=== PATIENT | male | born 1940 | race Caucasian/White ===

== ENCOUNTER 2016-06-18 05:25 | Inpatient (IN) | payer MEDICARE, OTHER ==
[2016-06-17 15:55] LABS: HEMATOCRIT 31.3 % (40.0-51.0)
[2016-06-17 16:08] LABS: ALBUMIN 3.2 G/DL (3.5-5.0); ALKALINE PHOSPHATASE 90 U/L (45-117); DIRECT BILIRUBIN 0.4 MG/DL (0.0-0.4); INDIRECT BILIRUBIN(NOT ORDER) 1.2 MG/DL (0.1-0.9); SGPT(ALT) 20 U/L (5-65); TOTAL BILIRUBIN 1.6 MG/DL (0-1.2); TOTAL PROTEIN 7.5 G/DL (6.0-8.5)
[2016-06-17 16:09] LABS: SGOT(AST) 26 U/L (5-40)
[2016-06-17 17:09] LABS: BUN (BLOOD UREA NITROGEN) 14 MG/DL (6-23); CHLORIDE, SERUM 99 MMOL/L (96-112); CO2 (CARBON DIOXIDE) 32 MMOL/L (24-34); CREATININE 1.02 MG/DL (0.70-1.30); GFR AFRICAN AMERICAN 83 ML/MIN (>=60); GFR NON AFRICAN AMERICAN 72 ML/MIN (>=60); GLUCOSE, SERUM 93 MG/DL (60-99); SODIUM, SERUM 142 MMOL/L (135-148)
--- NOTE | ~2016-06-18 | CN ---
Consultation Report [facility] [address] [place]. [address] NAME: CINDY ABERNATHY : 42 STATUS : ADM IN [facility]#: [id number] AGE: 76 ADM/REG DATE : 06/18/16 MR#: [id number] REPORT SERV DATE: 07/05/16 DICTATED BY: MELLO SEAMAN JR. DATE: 07/05/16 REPORT STATUS : Draft TRANSCRIBED BY: MODL DATE: 07/05/16 CONSULT NOTE DATE OF CONSULTATION: 07/05/2016 SUPPLIER QUALITY ENGINEERING MANAGER: Mello Seaman M.D. CHIEF COMPLAINT: Scrotal mass. HISTORY OF PRESENT ILLNESS: Mr. Abernathy is a 76-year-old gentleman, who was admitted on 06/18/2016, with epistaxis. He has a history of HHT, with a long history of recurring episodes of epistaxis, and as well as GI bleeding. 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 I was consulted to evaluate this tender mass in the scrotum. The patient is somewhat nonverbal as he has a tracheostomy, but he is able to follow commands and answer yes and no questions. PAST MEDICAL HISTORY: Significant for atrial fibrillation, cor pulmonale, chronic hepatic failure, gastrointestinal arterial venous malformations, and hereditary hemorrhagic telangiectasias. SOCIAL HISTORY: He is and is retired from . ALLERGIES: PENICILLIN. HOME MEDICATIONS: Pantoprazole, bumetanide, Keppra, metoprolol, Xifaxan, Amicar, Sucralfate, vitamin D3, potassium, lactulose, and tamoxifen. REVIEW OF SYSTEMS: A 10-system review was performed via yes and no questions. Pertinent negatives include no nausea, no vomiting, no chest pain, no shortness of breath. He has no testicular pain or scrotal pain. PHYSICAL EXAMINATION: GENERAL: He is an ill-appearing gentleman, lying comfortably in bed without distress. HEENT: Normocephalic and atraumatic. NECK: Reveals a tracheostomy in place. CHEST: Clear to auscultation bilaterally. HEART: Regular rate and rhythm. ABDOMEN: Soft, nontender, nondistended without palpable hernias. GENITOURINARY: Reveals an uncircumcised phallus which has some penile and scrotal edema. Both testicles are palpable and mildly tender more so on the left than the right, but no extratesticular masses were noted. Both epididymis were noted to be normal. Consultation Report [place] [address] [place]. [address] NAME: CINDY ABERNATHY : 42 STATUS : ADM IN PAT#: [id number] AGE: 76 ADM/REG DATE : 06/18/16 MR#: [id number] REPORT SERV DATE: 07/05/16 DICTATED BY: MELLO SEAMAN JR. DATE: 07/05/16 REPORT STATUS : Draft TRANSCRIBED BY: NETTIE DATE: 07/05/16 LABORATORY DATA: Electrolytes are within normal limits. Sodium was a little bit high at 151, BUN 25, creatinine 0.78, white blood cell count 5.4, hemoglobin 7, hematocrit 23.7. ASSESSMENT: Normal testicles bilaterally with mild tenderness more so on the left than the right. Normal epididymis. I did not palpate any extratesticular masses. RECOMMENDATIONS: This could be an early stage epididymitis. I am not sure which mass was palpated by the nursing staff, however, I do not feel any extratesticular masses, I have recommended a scrotal ultrasound for better delineation of a possible epididymitis. I will follow up with the patient tomorrow after the ultrasound has been completed. RAZ/NETTIE Mello Seaman Jr., M.D. / [id number] CC: Matthew Adair M.D.
--- NOTE | ~2016-06-18 | CONSULT ---
Radiation Oncology Consult [place] [id number] [facility] [place]. [address] NAME: CINDY QUEVEDO : 42 STATUS : ADM IN PAT#: [id number] AGE: 76 ADM/REG DATE : 06/18/16 MR#: [id number] REPORT SERV DATE: 07/16/16 DICTATED BY: ARNIE TEAGUE DATE: 07/16/16 REPORT STATUS : Draft TRANSCRIBED BY: MODMin DATE: 07/16/16 RADIATION ONCOLOGY CONSULTATION CHIEF COMPLAINT: Laryngeal squamous cell carcinoma. HISTORY OF PRESENT ILLNESS: Mr. Quevedo is a 76-year-old gentleman with hereditary hemorrhagic telangiectasias and a complicated history of multiple AVMs and bleeding episodes that have contributed to his current hepatic encephalopathy. He was most recently admitted to the hospital with epistaxis, treated with nasal packing and then readmitted after beginning to bleed again. Tracheostomy was performed due to stenosis and biopsy of the larynx returned invasive squamous cell carcinoma. PET-CT completed 07/07/2016 showed a 3.2 x 3.1 x 3.1 cm mass involving the left larynx extending to the false vocal cord and into the infraglottic larynx with anterior extension into the superficial soft tissues along the tracheostomy tube with direct involvement of the thyroid cartilage with posterior extension along the anterior esophagus with a single site of metastatic disease measuring 2.5 x 2.8 x 4 cm in the left neck adjacent to the primary lesion. MRI of the face and neck completed 07/13/2016 showed the lesion to be T4 with the left neck mass involving the posterior aspect of the left sternocleidomastoid and involving the carotid. The patient has an NG tube placed currently, but is not receiving any feedings. He is unable to swallow food and there is some consideration for a PEG tube being placed. He is resting comfortably today, but continues to struggle with diarrhea and hepatic encephalopathy. He continues to receive lactulose and Xifaxan. PAST MEDICAL HISTORY: HHT; multiple bleeding episodes, treated previously by Dr. 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 MEDICATIONS: Medication list reviewed included in the patient's chart. ALLERGIES: PENICILLIN. 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 He has multiple family members here present as support. 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 Does not drink or use tobacco. FAMILY HISTORY: HHT. REVIEW OF SYSTEMS: Documented through chart and discussion with family. PHYSICAL EXAMINATION: GENERAL: The patient is awake, alert, oriented, in no acute distress. VITAL SIGNS: Afebrile. Vital signs stable. HEENT: Extraocular movements are intact. Sclerae anicteric. Oral cavity is benign without erythema. Tracheostomy in place. Left neck mass. Radiation Oncology Consult [address] [address] NAME: CINDY QUEVEDO : 42 STATUS : ADM IN [facility]#: [id number] AGE: 76 ADM/REG DATE : 06/18/16 MR#: [id number] REPORT SERV DATE: 07/16/16 DICTATED BY: ARNIE TEAGUE DATE: 07/16/16 REPORT STATUS : Draft TRANSCRIBED BY: NETTIE DATE: 07/16/16 LYMPHATICS: No supraclavicular or axillary lymphadenopathy palpated. LUNGS: Clear to auscultation bilaterally. Appropriate work of breathing. HEART: Regular rate. Normal sinus rhythm. No murmurs, rubs, or gallops. ABDOMEN: Soft, nontender, nondistended. No hepatosplenomegaly. No apparent hernias. Rectal tube remains in place. EXTREMITIES: No cyanosis, clubbing, or edema. SKIN: No rashes. No obvious jaundice. LABS AND OTHER DATA: Imaging and pathology as described above. ASSESSMENT/PLAN: A 76-year-old gentleman with hereditary hemorrhagic telangiectasias, hepatic encephalopathy, and a large unresectable laryngeal squamous cell carcinoma. Mr. Quevedo is unable to eat at this time due to his laryngeal mask mass. First priority is to gain access. Currently, he has an NG tube in place, but there are plans to consider PEG tube placement. This will be extremely difficult due to his comorbidities, specifically his hereditary hemorrhagic telangiectasias and multiple AVMs. If he is able to have the tube placed, he could be released to home with tube feedings. If this is successful, a short course of palliative radiation therapy may be reasonable to shrink the laryngeal mass. Radiation alone is not curative in this setting and the family understands this. Second radiation in the setting of hereditary hemorrhagic telangiectasias could possibly lead to mucosal instability and significant bleeding. Family expresses understanding of this as well. A palliative course of radiation therapy would consist of approximately 4500 cGy in 15 fractions delivered in a hypofractionated manner to limit the number of treatments and to maximize effectiveness. Radiation is unlikely to help with feeding in the short term as it will significantly irritate the proximal esophagus, larynx, and oropharynx during treatment and this irritation will likely last at least two weeks after completion of treatment. Therefore, I would hesitate to start radiation without some sort of tube feedings in place. I plan to follow the patient while in-house and we will await further recommendations once he has been evaluated surgically. JEEVAN/NETTIE Arnie Teague M.D. / [id number] CC: Drake Choi MD Benjamin R Nadeau, MD Peter Sabatini, MD
--- NOTE | ~2016-06-18 | CN ---
Consultation Report [place] [id number] [facility] [place]. [address] NAME: CINDY ABERNATHY : 42 STATUS : ADM IN [facility]#: [id number] AGE: 76 ADM/REG DATE : 06/18/16 MR#: [id number] REPORT SERV DATE: 06/18/16 DICTATED BY: KHARI MAHAN DATE: 06/18/16 REPORT STATUS : Draft TRANSCRIBED BY: MODL DATE: 06/18/16 CONSULTATION DATE OF CONSULTATION: 06/18/2016 REASON FOR CONSULTATION: Postop ventilator management. CHIEF COMPLAINT: Unable to obtain due to the patient's current medical status, family is at the bedside. HISTORY OF PRESENT ILLNESS: Mr. Abernathy is a 76-year-old gentleman with a past medical history of hereditary hemorrhagic telangiectasia, who currently follows with Dr. Adair. 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 Since it was difficult to conduct this in the clinic, the patient underwent surgery. Upon reviewing the operative record, it was noted that the patient had glottic and subglottic telangiectasias causing for his compromised airway, and the patient is currently intubated. Otherwise, family states that he has frequent nosebleeds, bleeding from his digits and so forth. PAST MEDICAL HISTORY: Hereditary hemorrhagic telangiectasia, atrial fibrillation, cor pulmonale, chronic hepatic failure with hepatic AVMs, and many gastrointestinal AVMs according to the son. HOME MEDICATIONS: Home medication list reviewed. ALLERGIES: PENICILLIN. FAMILY HISTORY: Other family members with HHT. SOCIAL HISTORY: The patient currently has his and son at the bedside. REVIEW OF SYSTEMS: Unable to obtain review of systems due to the patient's current medical status. PHYSICAL EXAMINATION: VITAL SIGNS: Afebrile, heart rate currently in the 40s, respiratory rate 10, oxygen saturation 100%, blood pressure currently around 100 systolic. GENERAL: The patient is sedated, he does move his extremities to painful stimuli. HEENT: The patient has many facial telangiectasias noted. PULMONARY: Lungs are clear to auscultation. CARDIAC: Bradycardia, no murmurs. ABDOMEN: Soft, nontender, nondistended. EXTREMITIES: No significant extremity edema. Consultation Report [facility] [address] [facility] [place]. [address] NAME: CINDY ABERNATHY : 42 STATUS : ADM IN PAT#: [id number] AGE: 76 ADM/REG DATE : 06/18/16 MR#: [id number] REPORT SERV DATE: 06/18/16 DICTATED BY: KHARI MAHAN DATE: 06/18/16 REPORT STATUS : Draft TRANSCRIBED BY: MODL DATE: 06/18/16 LABORATORY EXAMINATION: Hemoglobin 9.5. INR 1.3. Good kidney function. Elevated total bilirubinemia, mildly. Arterial blood gas shows an elevated pCO2 but otherwise adequate. ASSESSMENT AND PLAN: Mr. Abernathy is a 76-year-old male with a past medical history noted above, who presents postop to the intensive care unit on mechanical ventilation. The patient is to undergo tracheostomy. 1. Acute respiratory failure: This is actually for airway protection as the patient has subglottic and glottic stenoses for which patient may have worsening respiratory failure if they were not intubated. The patient is to undergo tracheostomy here in the next 24-[address] Adair is to call the [facility] in [place] for further directives from their perspective on further therapy of this telangiectasia syndrome on the glottic and subglottic areas. 2. Atrial fibrillation and bradycardia. As noted above in the physical exam, the patient is quite bradycardic. At this moment in time, the patient has been taken off all sedation. We are checking troponin, labs. However, even being off sedation here for last several hours, it seems that the patient has worsening bradycardia with some long pauses. For that reason. At this moment in time, we will go forward with a cardiology consultation, and we have already placed the patient on norepinephrine. 3. FEN: At this moment in time, we will hold off on any tube feeds as we do not have any OG tube or NG tube. According to the son, the patient has thousands of arteriovenous malformations and has had past gastrointestinal bleeds which can be quite significant. Discussing this with Dr. Adair, they may place a Dobbhoff tube in the OR at the time of surgery in a more controlled setting. Thank you very much for this consultation and allowing us to participate in your patient's care. Please call us with any further questions or concerns. HFQ/MODL Khari Mahan MD / [id number] CC: Drake Choi MD
--- NOTE | ~2016-06-18 | CN ---
Consultation Report [facility] [address] [place]. [address] NAME: CINDY QUEVEDO : 42 STATUS : ADM IN PAT#: [id number] AGE: 76 ADM/REG DATE : 06/18/16 MR#: [id number] REPORT SERV DATE: 06/24/16 DICTATED BY: REINALDO HENSON DATE: 06/24/16 REPORT STATUS : Draft TRANSCRIBED BY: MODL DATE: 06/24/16 CONSULT NOTE DATE OF CONSULTATION: 06/24/2016 REASON FOR CONSULT: Intermittent mental confusion, seizure disorder. HISTORY OF PRESENT ILLNESS: This patient is a 76-year-old male with the underlying condition of hereditary hemorrhagic telangiectasia along with recurrent episodes of epistaxis and GI bleed. This patient was apparently admitted in [facility] for his one of the recurrence of nasal bleed, which needed nasal packing and later he was discharged. He went to follow up with [facility] for removal of nasal packing and upon removal, this patient's bleeding resumed and eventually, this patient was needed to be taken in the operation theater for further intervention. He was noted to have a glottic and subglottic stenosis, which was likely secondary to telangiectasia and needed tracheostomy and presently, the patient is status post tracheostomy. He also noted to have some cardiological changes including atrial fibrillation and bradycardia with pulse rate in the range of 50-53 beats. The Neurology Service was being consulted as the patient noted to have these intermittent episodes of mental confusion along with difficulty in following verbal commands on a consistent basis. He also noted to have a history of seizure disorder, which was apparently diagnosed about a year ago when this patient likely had a hepatic encephalopathy due to his chronic hepatic failure. He did not have any overt seizure activity and has been on Keppra 1000 mg every 12 hours. In addition, he also noted to have hyper ammonia with the ammonia level in the range of 95. No history of any lateralized weakness. PAST MEDICAL HISTORY: 1. Hereditary hemorrhagic telangiectasia, recurrent nasal epistasis. 2. Atrial fibrillation. 3. Cor pulmonale. 4. Chronic hepatic failure. 5. AVM involving the gastrointestinal tract. FAMILY HISTORY: Not very contributory for seizure disorder. 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 Lives with his family. No history of any significant cigarette smoking, alcohol drinking, or any other illicit drug abuse. HOME MEDICATION: 1. Protonix 40 mg daily. 2. Keppra 500 mg twice daily. Consultation Report [address] [place]. [address] NAME: CINDY QUEVEDO : 42 STATUS : ADM IN PAT#: [id number] AGE: 76 ADM/REG DATE : 06/18/16 MR#: [id number] REPORT SERV DATE: 06/24/16 DICTATED BY: REINALDO HENSON DATE: 06/24/16 REPORT STATUS : Draft TRANSCRIBED BY: NETTIE DATE: 06/24/16 3. Metoprolol 12.5 mg every 8 hours. 4. Rifaximin 550 mg twice daily. 5. Lactulose 2 0 g/30 mL, takes every 8 hours. 6. Tamoxifen 20 mg daily. 7. Potassium chloride 20 mEq daily. ALLERGIES: PENICILLIN, BLOOD THINNER. REVIEW OF SYSTEMS: A 10-point review of systems was attempted, could not be well performed because of his inability to communicate due to his recent tracheostomy, although some of the information obtained through the help of nursing staff and his assessment. NEUROLOGY: Intermittent mental confusion, seizure. RESPIRATORY SYSTEM: Intermittent breathing difficulty. GASTROINTESTINAL SYSTEM: Heartburn. Rest of the review of systems could not be obtained and largely negative. PHYSICAL EXAMINATION: VITAL SIGNS: Temperature 98.7, blood pressure 114/50, pulse is 70 per minute, respiratory rate 9, and he was saturating 99%. GENERAL: Elderly male lying with mild discomfort in his bed. HEAD: Nontraumatic. NECK: Midline tracheostomy wound with tracheostomy in place. EYES: PERRL. CARDIOLOGY: S1, S2 audible. Regular rhythm. RESPIRATORY SYSTEM: Lungs are clear to auscultation. GI: Soft, nontender. Bowel sounds positive. NEURO: Mental status examination: The patient was awake and alert. Speech could not be assessed. Cranial nerve evaluation: Pupils round and reactive. Extraocular movements are intact. No apparent facial droop or facial sensory impairment. Tongue was in midline. Motor examination: Normal bulk, tone. Muscle strength: Moves both upper and lower extremities equally and intermittently, though specifically was not able to follow commands, hence individual muscle strength assessment could not be performed. Sensory examination: Grossly intact. Coordination and gait: Deferred. MUSCULOSKELETAL SYSTEM: Near symmetrical range of movement. EXTREMITIES: No distal clubbing or cyanosis. PSYCHIATRY: Mood and affect flat. LABORATORY DATA AND DIAGNOSTICS: Sodium 145, potassium 3.8, chloride 107, carbon dioxide 29, BUN 34, creatinine 0.98, glucose 126. Total protein 6.2, AST 13, ALT 13, alkaline phosphatase 73. WBC 6.9, hemoglobin 8.2, hematocrit 25.1, platelets 154. INR 1.3. Noncontrast CT scan of the head revealed no acute intracranial abnormalities. IMPRESSION: This is a 76-year-old male with the underlying condition of: 1. Transient encephalopathy - multifactorial, metabolic, toxic, hepatic etiologies Consultation Report [place] [address] [place]. [address] NAME: CINDY QUEVEDO : 42 STATUS : ADM IN [facility]#: [id number] AGE: 76 ADM/REG DATE : 06/18/16 MR#: [id number] REPORT SERV DATE: 06/24/16 DICTATED BY: REINALDO HENSON DATE: 06/24/16 REPORT STATUS : Draft TRANSCRIBED BY: NETTIE DATE: 06/24/16 predominant. 2. Seizure disorder. 3. Recurrent episodes of epistaxis. 4. Status post tracheostomy. 5. Atrial fibrillation. 6. Bradycardia - presently improved. 7. Hereditary hemorrhagic telangiectasia. PLAN: 1. Noncontrast CT scan of the head reviewed. No acute intracranial abnormalities. 2. We will consider obtaining EEG if his cognitive mental status does not show any definite improvement. 3. Continue Keppra 500 mg twice daily. 4. Hyper ammonia, on lactulose 30 mL every 12 hours. We will recheck serum ammonia level. 5. Atrial fibrillation. Cardiology team on board to manage. 6. Seizure precautions, safety precautions, fall precautions. I appreciate Dr. Selam Trinidad for her valuable input and allowing me to participate in the management of this patient's care. FLOYD/NETTIE Reinaldo Henson MD / [id number] CC: Drake Choi MD
--- NOTE | ~2016-06-18 | OP ---
[facility] [place] [address] [place]. [address] NAME: CINDY QUEVEDO : 42 STATUS : REG [facility] PAT#: [id number] AGE: 76 ADM/REG DATE : 06/18/16 MR#: [id number] REPORT SERV DATE: 06/18/16 DICTATED BY: LINCOLN JAIMES DATE: 06/18/16 REPORT STATUS : Draft TRANSCRIBED BY: MODL DATE: 06/18/16 DATE OF PROCEDURE: 06/18/2016 PREOPERATIVE DIAGNOSES: 1. Hereditary hemorrhagic telangiectasia. 2. Epistaxis. POSTOPERATIVE DIAGNOSES: 1. Hereditary hemorrhagic telangiectasia. 2. Epistaxis. 3. Glottic and subglottic stenosis, secondary to telangiectasia. PROCEDURE: 1. Endoscopic control of epistaxis. 2. Microdirect laryngoscopy. 3. Rigid bronchoscopy. SURGEON: Lincoln Jaimes M.D. ANESTHESIA: General. COMPLICATIONS: None. COUNTS: All counts correct following the procedure. ESTIMATED BLOOD LOSS: 30 mL PREOPERATIVE INFORMED CONSENT: We discussed risks and benefits of surgery including, but not limited to bleeding infection, possible septal perforation, possible persistent epistaxis requiring repeat cauterization and consent is on the chart. PROCEDURE IN DETAIL: The patient was brought to the operating suite and placed on the operating table in the supine position. General endotracheal anesthesia was difficult and required intubated with a 6-1/2 tube, due to obstruction of the glottic and subglottic level. Once intubated, the patient's head and neck was cleaned, prepped, and draped in sterile fashion. The packing was removed from the right naris of the nose, it was then packed with pledgets soaked with 1:1000 adrenaline and then using a 0-degree endoscope, the packing was removed and the multiple telangiectasias along the septum as well as the inferior turbinate which were cauterized judiciously until bleeding was controlled. Due to the findings at intubation, Microdirect laryngoscopy and rigid bronchoscopy deemed to be necessary to be performed. Bite guard was placed on the upper teeth and a Dedo laryngoscope was carefully inserted on the oral cavity and used to inspect the oral cavity and oropharynx which was noted to be [facility] [place] [id number] [facility]. [address] NAME: CINDY QUEVEDO : 42 STATUS : REG [facility] PAT#: [id number] AGE: 76 ADM/REG DATE : 06/18/16 MR#: [id number] REPORT SERV DATE: 06/18/16 DICTATED BY: LINCOLN JAIMES DATE: 06/18/16 REPORT STATUS : Draft TRANSCRIBED BY: NETTIE DATE: 06/18/16 clear. The supraglottic larynx was then entered, the scope was then advanced at the level of the vocal cord. There was noted to be a thickening and telangiectatic changes to the left vocal cord. The patient was then suspended using the suspension apparatus and then a 0- degree Yan brenden was placed through the laryngoscope which was used inspect the vocal cords. The telangiectasia extended into the subglottic trachea causing significant stenosis approximately 1 to 2 cm below the vocal cords. The scope was then advanced after deflating the cuff on the endotracheal tube down to the both main stem bronchi. There was no further telangiectasias along the trachea or the main stem bronchi of the cuff. The scope was then removed. The cuff was reinflated and due to the extent the stenosis, the patient was left intubated and taken to recovery room in stable condition. WALLY/NETTIE Lincoln Jaimes M.D. / [id number] CC: Drake Choi MD
--- NOTE | ~2016-06-18 | CN ---
Consultation Report [facility] [address] [place]. [address] NAME: CINDY QUEVEDO : 42 STATUS : ADM IN [facility]#: [id number] AGE: 76 ADM/REG DATE : 06/18/16 MR#: [id number] REPORT SERV DATE: 07/17/16 DICTATED BY: CRISPIN TEMPLE III DATE: 07/17/16 REPORT STATUS : Draft TRANSCRIBED BY: MODL DATE: 07/17/16 CONSULTATION DATE OF CONSULTATION: 07/17/2016 REASON FOR CONSULT: 1. Evaluation for gastrostomy tube placement. 2. Recommendation regarding surgical management. HISTORY OF PRESENT ILLNESS: We have been asked to see this 76-year-old male in the Intermediate Care Unit today for the above reasons. The patient was admitted on 06/18/2016. 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 This is unresectable. The patient is felt not to be a candidate for chemotherapy or radiation therapy. The patient has involvement of the esophagus with upper esophageal obstruction secondary to his malignancy and is not able to eat. He is currently dependent on Dobbhoff feeding tube which is becoming progressively uncomfortable to him and difficult to manage. The patient was felt not to be a candidate for endoscopy for PEG tube placement because of the obstruction of his proximal esophagus. The patient and his have requested open gastrostomy tube placement for enteral nutrition. Consideration for hospice has been recommended by his caring physicians but this has been declined by the patient and his family. They wished to have a way for enteral nutrition to be able to go home. PAST MEDICAL HISTORY: 1. History of stage IV laryngeal cancer as above. This has been associated with esophageal obstruction per ENT evaluation. 2. 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 3. 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 4. Cirrhosis. 5. History of hepatic encephalopathy in the past. 6. Seizure disorder. 7. Atrial fibrillation. 8. Obstructive sleep apnea. 9. Hypertension. 10.Cor pulmonale. PAST SURGICAL HISTORY: Includes tracheostomy. SOCIAL HISTORY: No history of tobacco or alcohol use. ALLERGIES: PENICILLIN AND "BLOOD THINNERS." Consultation Report [facility] [address] [place]. [address] NAME: CINDY QUEVEDO : 42 STATUS : ADM IN PAT#: [id number] AGE: 76 ADM/REG DATE : 06/18/16 MR#: [id number] REPORT SERV DATE: 07/17/16 DICTATED BY: CRISPIN TEMPLE III DATE: 07/17/16 REPORT STATUS : Draft TRANSCRIBED BY: MODMin DATE: 07/17/16 MEDICATIONS: Amicar, Bumex, vitamin D, Pepcid, lactulose, Keppra, Levaquin nasal spray, Xifaxan, Florastor, Carafate. PHYSICAL EXAMINATION: GENERAL: Chronically ill appearing male, who is alert and able to communicate by nodding his head. He has a tracheostomy tube in place. He has excoriation of the skin around his nose where his Dobbhoff feeding tube is in place. LUNGS: Clear. ABDOMEN: Soft and nontender. EXTREMITIES: Unremarkable. LABORATORY: The patient has had no recent laboratory studies. ASSESSMENT: 1. 76-year-old male with previously documented stage IV laryngeal cancer, with proximal esophageal obstruction, need for gastrostomy tube placement for enteral nutrition. 2. History of Ytpga-Lammu-Ssiux syndrome with recurrent episodes of GI bleeding. 3. Hypertension. 4. Obstructive sleep apnea. 5. Seizure disorder. 6. Atrial fibrillation. 7. Cor pulmonale. 8. History of cirrhosis and hepatic failure in the past. PLAN: I had a long discussion with the patient and his . I have explained that this is a major operation with high risk for morbidity and mortality in this setting, particularly with cirrhosis and probable portal hypertension. I have explained the long-term complications and problems associated with the G-tube including leakage around the tube, dislodgement of the tube, occlusion of the tube, and other mechanical problems. The procedure itself, the risks, benefits, alternatives, including not limited to the risk for bleeding, infection, enterotomy, injury to abdominal structure, postop small bowel obstruction, ileus, incisional hernia, dehiscence, leakage around the tube resulting in peritonitis, sepsis, and , prolonged ventilator dependency, precipitation of GI bleeding and unforeseen complications including deep venous thrombosis, pulmonary embolus, myocardial infarction, stroke, pneumonia, and , have been fully and completely explained to the patient and his . Their questions have been answered. They clearly and fully understand the risks and agreed to the surgery as planned. RHCarolann/NETTIE Crispin Temple III, M.D. Consultation Report [address] [place]. [address] NAME: CINDY QUEVEDO : 42 STATUS : ADM IN PAT#: [id number] AGE: 76 ADM/REG DATE : 06/18/16 MR#: [id number] REPORT SERV DATE: 07/17/16 DICTATED BY: CRISPIN TEMPLE III DATE: 07/17/16 REPORT STATUS : Draft TRANSCRIBED BY: NETTIE DATE: 07/17/16 / [id number] CC: Darke Choi MD
--- NOTE | ~2016-06-18 | CN ---
Consultation Report [facility] [address] [place]. [address] NAME: CINDY QUEVEDO : 42 STATUS : ADM IN PAT#: [id number] AGE: 76 ADM/REG DATE : 06/18/16 MR#: [id number] REPORT SERV DATE: 07/16/16 DICTATED BY: GERMAN NAVARRO DATE: 07/15/16 REPORT STATUS : Draft TRANSCRIBED BY: MODL DATE: 07/15/16 HEMATOLOGY ONCOLOGY INITIAL CONSULTATION REPORT DATE OF CONSULTATION: CONSULTING PHYSICIAN: Dr. Nieto of the ENT service consult regarding stage IV laryngeal cancer. CHIEF COMPLAINT: Laryngeal cancer. HISTORY OF PRESENT ILLNESS: The patient is a 76-year-old, white gentleman with history of hereditary hemorrhagic telangiectasias, cirrhosis complicated by hepatic encephalopathy, cor pulmonale, and atrial fibrillation who was admitted to the hospital for epistaxis. He was recently admitted to [facility] for recurrent epistaxis. He received nasal packing and was later discharged. He was seen in [facility] who removed the packing, but the patient again developed bleeding. He was admitted and taken to Surgery for further intervention. During this time, he was noted to have glottic and subglottic stenosis. This was felt secondary to telangiectasias. He had a tracheostomy performed. Later, he had a biopsy of the larynx, identifying invasive squamous cell carcinoma moderately to poorly differentiated in both the larynx and subglottic mass. He was thought to be T4N0 and potentially a surgical candidate. A PET scan was performed on 07/07/2016 showing a laryngeal carcinoma involving the left true and false vocal cord extending into the infraglottic larynx measuring 3.2 x 3.1 x 3.1 cm with an SUV max of 11.5. There is posterior extension across the midline to involve the right vocal cord and infraglottic larynx. There is anterior extension along the tracheostomy tube. The mass causes severe narrowing of the larynx and comes into contact with the esophagus which is demonstrated by the NG tube. The mass appears to involve the thyroid cartilage. The patient also has a 2.5 x 2.8 x 4 cm lymph node mass in the left neck adjacent to the lesion extending into the supraclavicular region with a maximum SUV value of 16.2. Finally, there was an 8 mm nodule in the right middle lobe adjacent to the major minor fissures but does not have significant uptake with an SUV of 1.8. An MRI of the orbit, face, and neck was then performed on 07/13/2016 showing a 4.1 x 4.3 x 4.1 cm laryngeal mass as well as irregular enhancing left neck mass with component of invasion into the posterior margin of the left sternocleidomastoid muscle. Likely was initially paulino but it appears to infiltrate and no longer has paulino contour. The left internal jugular vein is obscured in this region. As the patient has stage IVB disease and is unresectable, medical oncology is consulted for possible chemotherapy options. The patient is unable to give much history. He nodded to a few questions, but then asked for me to talk to his about all of my questions. In talking with his , the patient has had intermittent hoarseness for three years. He has seen ENT in the interim, but no obvious cause has been identified. He then developed persistent hoarseness since 04/2016. He developed stridor and respiratory issues after his discharge from [facility]. He has also been experiencing dysphagia getting choked on food and pills for the past several months. Consultation Report [place] [id number] [facility] [place]. [address] NAME: CINDY QUEVEDO : 42 STATUS : ADM IN [facility]#: [id number] AGE: 76 ADM/REG DATE : 06/18/16 MR#: [id number] REPORT SERV DATE: 07/16/16 DICTATED BY: GERMAN NAVARRO DATE: 07/15/16 REPORT STATUS : Draft TRANSCRIBED BY: NETTIE DATE: 07/15/16 Currently, the patient did report mild tenderness in the left neck at around the tracheostomy. He has had blood in his sputum production coming from his tracheostomy. The patient and family have not noticed any other bleeding at this time. He has had intermittent confusion during this hospitalization with elevation in his ammonia level related to hepatic encephalopathy. He has not required a rectal tube for over a week for diarrhea. He is still requiring lactulose and Xifaxan regularly. He did experience shortness of breath this morning related to obstruction of his tracheostomy. However, after tracheostomy care, his breathing is much improved. The patient is unable to give any other history and his denies any other issues while I talked to her on the phone. PAST MEDICAL HISTORY: 1. 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 Bernal at [facility]. 2. Multiple GI bleeds related to AV malformations. 3. Cirrhosis and chronic hepatic failure. 4. Hepatic encephalopathy. 5. Cor pulmonale. 6. Atrial fibrillation. 7. Seizure disorder. 8. Obstructive sleep apnea. 9. Hypertension. 10.Laryngeal cancer. MEDICATIONS: Reviewed from [facility]. ALLERGIES: PENICILLIN. 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 No tobacco alcohol or illicit drug use. FAMILY HISTORY: Family history of HHT. REVIEW OF SYSTEMS: Unable to obtain due to limited history by the patient and his . PHYSICAL EXAMINATION: VITAL SIGNS: Temperature 97.7, pulse 80, blood pressure 120/59, pulse ox 95% on nasal cannula. GENERAL: Elderly ill-appearing white gentleman in no acute distress. HEENT: Pupils equal, round, and reactive to light. Extraocular movements are intact. Conjunctivae and lids normal. Sclerae anicteric. Dry mucous membranes. No mucosal irritation on the tongue and posterior pharynx which was not well visualized as the patient was getting tracheostomy care. Neck tracheostomy in place with tenderness in the surrounding area without erythema or purulence. Also, has tenderness in the left neck but difficult to palpate due to pain and stress for his tracheostomy. Consultation Report [address] [place]. [address] NAME: CINDY QUEVEDO : 42 STATUS : ADM IN [facility]#: [id number] AGE: 76 ADM/REG DATE : 06/18/16 MR#: [id number] REPORT SERV DATE: 07/16/16 DICTATED BY: GERMAN NAVARRO DATE: 07/15/16 REPORT STATUS : Draft TRANSCRIBED BY: MODL DATE: 07/15/16 LUNGS: Normal respiratory effort. Clear to auscultation bilaterally anteriorly with occasional rhonchi. No wheezes or crackles appreciated. CARDIOVASCULAR: Irregularly irregular without RVR without murmurs, rubs or gallops. ABDOMEN: Soft, nontender, nondistended. Positive bowel sounds. Rectal tube in place with brown stool noted. EXTREMITIES: No clubbing or cyanosis. One to 2+ pitting edema, bilateral lower extremities up to the lower abdomen. SKIN: Warm, dry, intact. Scabbed lesion on the right face with bandage affixed to the scab and unable to be visualized without tearing the skin. Multiple raised telangiectasias on the skin. NEUROLOGIC: No focal deficits. PSYCHIATRIC: Awake, alert, and oriented but question is full insight as did disagree with his on some answers. LABS: BUN of 15, creatinine 0.8, total bilirubin of 1.9, albumin of 2.3, last CBC from 07/09/2016 with a white blood cell count 5400, hemoglobin 8.9 g/dL, hematocrit 28.6% platelets 117,000. Last ammonia 59 on 07/09/2016 with a peak of 115 on 07/01/2016. ASSESSMENT AND PLAN: The patient is a 76-year-old, white gentleman with hereditary hemorrhagic telangiectasia, cirrhosis complicated by hepatic encephalopathy, cor pulmonale, admitted for bleeding but then found to have glottic stenosis. Biopsy showed moderate-to- poorly differentiated squamous cell carcinoma prompting consultation. 1. Laryngeal carcinoma: I have reviewed the patient's records including notes, imaging reports, pathology reports, and labs. I personally viewed his PET and MRI images which show T4 laryngeal tumor with thyroid cartilage invasion and N3 paulino disease measuring greater than 7 cm. Surgery has already been ruled out based on vessel encasement and overall extent of disease. Based on his performance status, I cannot give induction chemotherapy. I do not even believe he can tolerate weekly chemotherapy to be given with concurrent radiation. I will talk with Radiation Oncology, but I feel the only option may be palliative radiation and hospice. The patient has seen Dr. Bernal at [facility]. I will contact Dr. Bernal to discuss the case and his opinion since I feel there are little options for treatment at this time. I will come back after talking with Radiation Oncology and Dr. Bernal to finalize any potential options. 2. Cirrhosis and hepatic encephalopathy: His ammonia has remained elevated, despite repeated treatment with lactulose and Xifaxan. He currently has a rectal tube which he has had for many days for diarrhea related to these medications. Continue current therapy. 3. Hereditary hemorrhagic telangiectasia: He is currently on Amicar and has only mild bleeding related to his tracheostomy and need for suctioning. Continue current treatment with Amicar at this time. I appreciate the consult and allowing me to take part in the patient's care. Consultation Report [facility] [address] [place]. [address] NAME: CINDY QUEVEDO : 42 STATUS : ADM IN PAT#: [id number] AGE: 76 ADM/REG DATE : 06/18/16 MR#: [id number] REPORT SERV DATE: 07/16/16 DICTATED BY: GERMAN NAVARRO DATE: 07/15/16 REPORT STATUS : Draft TRANSCRIBED BY: NETTIE DATE: 07/15/16 NORMA/NETTIE German Navarro MD / [id number] CC: Drake Choi MD
--- NOTE | ~2016-06-18 | HP ---
History And Physical [place] [id number] [place]. [address] NAME: CINDY ABERNATHY : 42 STATUS : REG [facility]#: [id number] AGE: 76 ADM/REG DATE : 06/18/16 MR#: [id number] REPORT SERV DATE: 06/18/16 DICTATED BY: LINCOLN ADAIR DATE: 06/18/16 REPORT STATUS : Draft TRANSCRIBED BY: MODL DATE: 06/18/16 DATE OF ADMISSION: 06/18/2016 CHIEF COMPLAINT: Epistaxis. HISTORY OF PRESENT ILLNESS: Mr. Abernathy is a 76-year-old gentleman with a history of HHT with long history of recurring episodes of epistaxis as well as GI bleed in the past. He was recently admitted to [facility] due to significant right-sided nosebleed requiring nasal packing for control. He was discharged from the hospital on Tuesday and then seen in my office yesterday for packing removal. After removing the packing in the office, the bleeding resumed and his nose had to be repacked to control epistaxis and he is here today to be taken to the operating room for control of his epistaxis. He had been having some increasing issues with shortness of breath and flexible exam in office showed some blood in the supraglottic larynx, but difficult to visualize due to this blood clots within of the larynx. The vocal cords appeared to be mobile. PAST MEDICAL HISTORY: Significant for atrial fibrillation, cor pulmonale, chronic hepatic failure, gastrointestinal arteriovenous vascular malformation, hereditary hemorrhagic telangiectasia. 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 MEDICATIONS: Pantoprazole, bumetanide, levetiracetam, metoprolol, Xifaxan, Amicar, Sucralfate, vitamin D3, potassium, lactulose, Tamoxifen. PHYSICAL EXAMINATION: GENERAL: The patient is an ill appearing gentleman with multiple telangiectasias involving his face and nose. He has a nasal pack in the right nares. Oral cavity and oropharynx shows multiple telangiectasias of the soft and hard palate. NECK: Supple. No palpable adenopathy or masses. LUNGS: He has a somewhat raspy noisy breathing, but no talib stridor and no retractions. CHEST: Again shows noisy upper airway, but otherwise his chest is clear to auscultation bilaterally. HEART: Regular in rate. ABDOMEN: Benign. EXTREMITIES: No clubbing, cyanosis or edema. IMPRESSION: Hereditary hemorrhagic telangiectasia with associated bright uncontrolled epistaxis. PLAN: The patient will be taken to the operating for endoscopic control of the epistaxis. History And Physical [address] [address] NAME: CINDY ABERNATHY : 42 STATUS : REG [facility] PAT#: [id number] AGE: 76 ADM/REG DATE : 06/18/16 MR#: [id number] REPORT SERV DATE: 06/18/16 DICTATED BY: LINCOLN ADAIR DATE: 06/18/16 REPORT STATUS : Draft TRANSCRIBED BY: NETTIE DATE: 06/18/16 WALLY/NETTIE Lincoln Adair M.D. / [id number]
--- NOTE | ~2016-06-18 | OP ---
Record Of Operation [facility] [address] [place]. [address] NAME: CINDY QUEVEDO : 42 STATUS : DIS IN PAT#: [id number] AGE: 76 ADM/REG DATE : 06/18/16 MR#: [id number] REPORT SERV DATE: 10/06/16 DICTATED BY: LINCOLN JAIMES DATE: 10/06/16 REPORT STATUS : Draft TRANSCRIBED BY: MODL DATE: 10/06/16 DATE OF PROCEDURE: 07/05/2016 PREOPERATIVE DIAGNOSES: 1. Hereditary hemorrhagic telangiectasia. 2. Laryngeal and subglottic mass. POSTOPERATIVE DIAGNOSES: 1. Hereditary hemorrhagic telangiectasia. 2. Squamous cell carcinoma of the larynx. PROCEDURES: 1. Microdirect laryngoscopy with CO2 laser and biopsy. 2. Rigid bronchoscopy. 3. Endoscopic control of epistaxis. SURGEON: Lincoln Jaimes M.D. ANESTHESIA: General. COMPLICATIONS: None. COUNTS: All counts correct following the procedure. ESTIMATED BLOOD LOSS: Minimal. PREOPERATIVE INFORMED CONSENT: We discussed the risks and benefits of surgery including, but not limited to bleeding, infection, possible loss of airway, possible airway fire, and , and consent is on the chart. PROCEDURE IN DETAIL: The patient was brought to the operating suite and placed on the operating table in supine position. General endotracheal anesthesia was initiated through previously existing endotracheal tube. Starting in the nose, the nose was decongested using 1:1000 topical Adrenalin. The nasal septum was injected with 1% lidocaine with 1:100,000 epinephrine. Following this, using a 0-degree endoscope, the nasal septum was cauterized and multiple telangiectasias along the septum and inferior and middle turbinates judiciously. Attention was taken to the oral cavity. A bite guard was placed on the upper teeth and a Dedo laryngoscope was used to inspect the oral cavity and oropharynx. There is no evidence of any mucosal lesions. The hypopharynx was clear of any mucosal lesions. The supraglottic larynx was inspected and there was noted to be an exophytic mass or lesion involving the left vocal fold extending into the subglottis that is obstructing his glottic airway as well as extending to the anterior commissure. Using a 0-degree Yan brenden, this was placed through the laryngoscope used to inspect the subglottic trachea. The lesion extended to approximately 1 cm below the vocal cords. The remainder of the trachea and both main stem bronchi were noted to be clear of Record Of Operation [address] [place] [facility] [address] NAME: CINDY QUEVEDO : 42 STATUS : DIS IN PAT#: [id number] AGE: 76 ADM/REG DATE : 06/18/16 MR#: [id number] REPORT SERV DATE: 10/06/16 DICTATED BY: LINCOLN JAIMES DATE: 10/06/16 REPORT STATUS : Draft TRANSCRIBED BY: MODL DATE: 10/06/16 disease. Multiple biopsies were taken of the left vocal fold and some were sent for frozen section. Frozen section came back consistent with squamous cell carcinoma. Bleeding was controlled using topical Adrenalin as well as CO2 laser to debulk the lesion. The Dedo laryngoscope was then removed and the patient was awakened from anesthesia and taken to the recovery room in stable condition. WALLY/NETTIE Lincoln Jaimes M.D. / [id number] CC: Drake Choi MD
--- NOTE | ~2016-06-18 | OP ---
Record Of Operation [facility] [address] [place]. 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 PROCEDURE: Gastrostomy tube placement. SURGEON: Dr. Crispin Temple. ANESTHESIA: General with intubation. COMPLICATIONS: None. ESTIMATED BLOOD LOSS: Less than 5 mL. SPECIMENS: None. DRAINS: Tarzan in subcutaneous tissue. LAP AND SPONGE COUNT: Correct x3. BRIEF HISTORY: This 76-year-old male has a history of stage IV laryngeal cancer with esophageal obstruction. It was felt that placement of a gastrostomy tube is indicated to allow for chronic enteral nutrition. This procedure, the risks, benefits, and alternatives, including not limited to the risk for bleeding, infection, pain, swelling, enterotomy, injury to abdominal structure, postop small bowel obstruction, ileus, seroma formation, hematoma formation, leakage around the gastrostomy tube, migration or occlusion of the tube requiring revision, malfunction of the tube, abdominal wall cellulitis and leakage around the tube and unforeseen complications including deep venous thrombosis, pulmonary embolus, myocardial infarction, stroke, pneumonia, and , were explained to the patient and his family at length prior to surgery. Their questions were answered. They understood the risks and agreed to the surgery as planned. DESCRIPTION OF PROCEDURE: After being properly identified and after discussing the risks of surgery with the patient and his family again in the preoperative area, he was taken to the operating room and placed in a supine position on the operating room table. General anesthesia was administered. He was intubated without difficulty. The abdomen was prepped and draped sterilely in the usual fashion. After an appropriate "time-out" per JCAHO standards, a small vertical midline incision was made midway between the umbilicus and the xiphoid process. The incision was continued through the subcutaneous tissue. Hemostasis was controlled with cautery. The incision was continued through the fascia. The abdominal cavity was entered. The stomach was identified and mobilized into the wound. We placed a Record Of Operation [place] [address] [place]. [address] NAME: CINDY QUEVEDO : 42 STATUS : ADM IN [facility] WITH [facility]#: [id number] AGE: 76 ADM/REG DATE : 06/18/16 MR#: [id number] REPORT SERV DATE: 07/19/16 DICTATED BY: CRISPIN TEMPLE III DATE: 07/19/16 REPORT STATUS : Draft TRANSCRIBED BY: NETTIE DATE: 07/19/16 #14-Frisian gastrostomy tube through a separate stab wound to the left of the incision. A 3- 0 silk pursestring was placed around the anterior wall of the mid body of the stomach, the area which had been selected for placement of the feeding tube. A small gastrotomy was made in this location in the center of the pursestring. The end of the gastrostomy tube was passed through this opening and passed into the stomach distally. The balloon was inflated. The pursestring was secured. The exit site of the gastrostomy tube from the stomach was oversewn with interrupted 3-0 silk sutures in a Witzel fashion. This new exit site was secured to the underside of the abdominal wall with 3-0 silk sutures. The catheter was noted to flush easily. It was in good position. The stomach was not twisted or kinked in any way. The area was irrigated copiously with saline. Hemostasis was assured. The fascia was closed with a running looped #1 PDS suture. The subcutaneous tissue was closed with a running 3-0 chromic suture over a Tarzan drain which was brought through the inferior aspect of the incision. The skin was closed with a running subcuticular 4-0 Monocryl stitch. The incision was injected with 0.5% Marcaine. Dressings were applied. Anesthesia was reversed. The patient was taken to the recovery room in stable condition. He tolerated the procedure well. His family was informed of the results of surgery. The patient will remain in the hospital for postoperative care. ELENA/NETTIE Crispin Temple III, M.D. / [id number] CC: Drake Choi MD
--- NOTE | ~2016-06-18 | OP ---
Record Of Operation [facility] [address] [place]. 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 PROCEDURE: Tracheostomy #8 cuffed Shiley trach tube. ANESTHESIA: General. COMPLICATIONS: None. COUNTS: All counts correct following the procedure. ESTIMATED BLOOD LOSS: 2 mL. PREOPERATIVE INFORMED CONSENT: We discussed the risks and benefits of surgery including but not limited to bleeding, infection, possible loss of airway and , possible tracheal stenosis, possible need for long-term trach dependency. The understands the risks and benefits of surgery and consent is on the chart. DETAILS OF PROCEDURE: The patient was brought to the operating suite and placed on the operating table in the supine position. General endotracheal anesthesia was initiated through the previously existing endotracheal tube. The neck was cleaned, prepped and draped in the usual sterile fashion. A transverse incision was marked out and then using electrocautery, an incision was made with sharp dissection down through the subcutaneous tissues down to the strap muscles. The midline fascia was divided and the strap muscles were retracted laterally. The thyroid isthmus was dissected off the anterior tracheal wall and divided using electrocautery, taking care to cauterize all surrounding vessels. A peanut pusher was used to clean off the anterior tracheal wall and the space between the second and third tracheal ring was scored using electrocautery. A #15-blade scalpel was used to perform tracheostomy. An inferior flap was created using curved Villar scissors and a stay suture was placed on the lower tracheal flap. The endotracheal tube was moved above the tracheostomy site and a #8 cuffed Shiley trach tube was placed through the tracheostomy site without difficulty. The endotracheal tube was removed. The tracheostomy tube was then reconnected to the ventilator and the patient was noted to have good CO2 return and good breath sounds bilaterally. The tracheostomy tube was then sutured to the skin using 2-0 silk suture and a Velcro trach tie. The patient was taken to the Intensive Care Unit in stable condition. J/MODL Record Of [place] [address] [place]. [address] NAME: CINDY QUEVEDO : 41 STATUS : ADM IN [facility]#: [id number] AGE: 76 ADM/REG DATE : 06/18/16 MR#: [id number] REPORT SERV DATE: 06/21/16 DICTATED BY: LINCOLN JAIMES DATE: 06/21/16 REPORT STATUS : Draft TRANSCRIBED BY: NETTIE DATE: 06/21/16 Lincoln Jaimes M.D. / [id number] CC: Drake Choi MD
--- NOTE | ~2016-06-18 | CN ---
Consultation Report [facility] [address] [place]. [address] NAME: CINDY QUEVEDO : 42 STATUS : ADM IN PAT#: [id number] AGE: 76 ADM/REG DATE : 06/18/16 MR#: [id number] REPORT SERV DATE: 06/30/16 DICTATED BY: OLIVA SANABRIA DATE: 06/30/16 REPORT STATUS : Draft TRANSCRIBED BY: MODL DATE: 06/30/16 CONSULTATION REPORT DATE OF CONSULTATION: 06/29/2016 REASON FOR CONSULTATION: Consulted for medical management. REQUESTING PHYSICIAN: Matthew Adair M.D. ENT: Matthew Adair M.D. SALES CENTER ASSOCIATE: Baltazar Bernal MD. MANAGER OF DATA: Selam Trinidad M.D. NEUROLOGIST: Eddie Benedict MD. HISTORY OF PRESENT ILLNESS: This is a 76-year-old gentleman with underlying condition of hereditary hemorrhagic telangiectasia along with recurrent episodes of epistaxis and GI bleed. He was apparently admitted to [facility] for one of his recurrent nasal bleeds, which required nasal packing and later was discharged, then he went to follow up with Dr. Adair's clinic for removal of the packing and the patient's bleeding resumed. Eventually, he had to be admitted and taken to surgery for further intervention. He was noted to have a glottic and subglottic stenosis, which was most likely secondary to the telangiectasia and needed a tracheostomy and presently, the patient is status post placement of a tracheostomy. At that time, he was also noted to have some Cardiology changes from his atrial fib, which he was bradycardic with a pulse rate in the low 50s. Neurology was consulted because the patient also had intermittent episodes of mental confusion along with difficulty with verbal commands on a consistent basis. The patient has a history of seizure disorder and apparently was diagnosed about a year ago with a hepatic encephalopathy due to his chronic hepatic failure. In addition, on admission, he was noted to have high ammonia level in the range of 95 for which treatment was initiated. The patient has a medical history of hereditary hemorrhagic telangiectasia, Cor pulmonale, atrial fib chronically, chronic hepatic failure, seizure disorder, and hepatic encephalopathy. 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 The patient is unable to verbalize. He tries to attempt mouth words. It is questionable about his orientation since he has a midline tracheostomy tube in place. PAST MEDICAL HISTORY: 1. 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 Consultation Report [facility] [address] [place]. [address] NAME: CINDY QUEVEDO : 42 STATUS : ADM IN PAT#: [id number] AGE: 76 ADM/REG DATE : 06/18/16 MR#: [id number] REPORT SERV DATE: 06/30/16 DICTATED BY: OLIVA SANABRIA DATE: 06/30/16 REPORT STATUS : Draft TRANSCRIBED BY: NETTIE DATE: 06/30/16 2. GI bleed, AV malformations. 3. He wears dentures. 4. Atrial fibrillation. 5. Cor pulmonale. 6. Chronic hepatic failure. 7. Encephalopathy. 8. Seizure disorder. 9. Mental confusion. 10.Bradycardia. 11.CHF. 12.Hypertension. 13.Obstructive sleep apnea with no CPAP use at home. 14.Ulcers. 15.Cirrhosis. 16.Myopia and presbyopia and the patient wears contacts. HOME MEDICATIONS: 1. Amicar 1000 mg p.o. three times daily. 2. Bumex 1 mg p.o. twice a day. 3. Vitamin D 2000 units p.o. daily. 4. Lactulose 30 mL p.o. every eight hours. 5. Keppra 500 mg p.o. twice a day. 6. Lopressor 12.5 mg p.o. every eight hours. 7. Protonix 40 mg p.o. twice a day. 8. Potassium chloride 20 mEq p.o. which is an unknown dose daily as to how often. 9. Rifaximin 550 mg p.o. twice a day. 10.Carafate 1 g p.o. before meals. 11.Tamoxifen 20 mg p.o. daily. ALLERGIES: PENICILLIN AND THE PATIENT IS UNABLE TO USE BLOOD THINNERS DUE TO HHT. 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 No alcohol, cigarettes, or illicit drug use. FAMILY HISTORY: The patient's is unavailable and he is unable to answer questions, but it is noted in notes that the patient's family other members are positive for HHT. PAST SURGICAL HISTORY: 1. Glottic/subglottic stenosis due to telangiectasia requiring a #8 cuff Shiley trach on 06/21/2016. 2. Septoplasty in 2004. 3. EGD for ulcers in 2015. 4. LARIAT procedure for atrial fib in 2014. REVIEW OF SYSTEMS: Consultation Report [place] [id number] [place]. [address] NAME: CINDY QUEVEDO : 42 STATUS : ADM IN [facility]#: [id number] AGE: 76 ADM/REG DATE : 06/18/16 MR#: [id number] REPORT SERV DATE: 06/30/16 DICTATED BY: OLIVA SANABRIA DATE: 06/30/16 REPORT STATUS : Draft TRANSCRIBED BY: NETTIE DATE: 06/30/16 Negative other than what is included in HPI. The patient is unable to verbalize to questions I ask. He attempts to mouth words. PHYSICAL EXAMINATION: VITAL SIGNS: From today, blood pressure 104/57, heart rate 78, respiratory rate 14, O2 sat 98%. GENERAL: This is an ill-appearing, 76-year-old male, resting in bed. No acute distress at present time. He has a right Wing Dobhoff tube with vital high-protein infusing for nutrition. NEUROLOGIC: Head is atraumatic, normocephalic. He is unable to assess orientation. He does open his eyes and appears to try to mouth words when asked questions. NECK: No JVD. No nodes. Normal thyroid. He has a midline tracheostomy in place. He does cough out dark blood in secretions when he coughs. EENT: His sclerae are nonicteric. His pupils are equal, reactive to light. His nares are patent. His mucous membranes are moist. CHEST: No pain with palpation. LUNGS: He has normal respiratory effort. He does have a trach mask in place. He has a few crackles bilaterally diminished in the bases and coarse breath sounds. CARDIOVASCULAR: S1, S2. Rhythm irregularly irregular. Noted atrial fib which is chronic on telemetry, rate of 78. ABDOMEN: Soft, nontender. Bowel sounds are positive. He has a rectal tube in place to a bedside bag which has brown stool noted. He is on lactulose daily. EXTREMITIES: Pulses present. No calf tenderness. Does have some edema in his legs. Noted bilateral SCDs in place. SKIN: Warm and dry. No unusual rashes or lesions. Turgor is poor. PSYCHIATRIC: The patient has a flat affect. LABORATORY DATA: Sodium 154, potassium 3.6, chloride 109, bicarb 24.9, BUN 24, creatinine 0.78, GFR 102, glucose 103, calcium 8.3, magnesium 2.3, phosphorus 2.2. White blood cell count 7.6, hemoglobin 8.5, hematocrit 28.5, platelets 140. INR 1.3. CPK 53, CK-MB 1.5. Troponin 0.03. TSH 1.120. On 06/28/2016, the patient had a chest x-ray that showed no segmental consolidation or pleural effusion, had some stable congestive failure at that time. ASSESSMENT AND PLAN: 1. Hereditary hemorrhagic telangiectasia. Aware. The patient has a history due to frequent nose bleeds and glottic and subglottic stenosis, he has had to have a trach placed. He did have a bronch on 06/28. We will continue to monitor PT/INR and we will continue his Amicar. 2. Atrial fibrillation which is chronic. Aware. The patient's rate is controlled. 3. Hyperammonemia. Aware. The patient is receiving lactulose daily. He has a rectal tube for diarrhea stools. We will recheck an ammonia level this morning. He has Xifaxan and continued. 4. Hypernatremia. Aware. A.m. labs, his sodium was 154. We will change his IV fluids to D5 and half and continue to monitor his labs daily. Consultation Report [address] [place]. [address] NAME: CINDY QUEVEDO : 42 STATUS : ADM IN [facility]#: [id number] AGE: 76 ADM/REG DATE : 06/18/16 MR#: [id number] REPORT SERV DATE: 06/30/16 DICTATED BY: OLIVA SANABRIA DATE: 06/30/16 REPORT STATUS : Draft TRANSCRIBED BY: NETTIE DATE: 06/30/16 5. Seizure disorder. Aware. We will continue to monitor for any seizure disorder and continue his Keppra. Labs this morning; PT/INR, BMP, magnesium, CBC, and ammonia level. The hospitalist group would like to thank you for this consultation and please let us know if we can be of any further assistance. Tia team to follow and continue care. AMITA Oliva Sanabria NP / [phone]
--- NOTE | ~2016-06-18 | CN ---
Consultation Report [facility] [address] [place]. [address] NAME: CINDY ABERNATHY : 42 STATUS : ADM IN PAT#: [id number] AGE: 76 ADM/REG DATE : 06/18/16 MR#: [id number] REPORT SERV DATE: 06/18/16 DICTATED BY: DATE: REPORT STATUS : Draft TRANSCRIBED BY: MODL DATE: 06/18/16 DATE OF CONSULTATION: 06/18/2016 CHIEF COMPLAINT/REASON FOR CONSULT: Bradycardia. HISTORY OF PRESENT ILLNESS: Mr. Abernathy is a 76-year-old gentleman with a history of hereditary hemorrhagic telangiectasia. He has had recurrent episodes of epistasis and GI bleeding in the past. He was recently admitted to [facility] with epistasis requiring nasal packing and was just discharged from the hospital two days ago and seen in Dr. Adair's office for nasal packing removal. When Dr. Adair removed the packing in the office, the patient's bleeding resumed. The patient had it repacked and was taken to the operating room today for control of his epistasis. The patient also showed some blood in the supraglottic larynx. In the operating room, the patient was found to have glottic and subglottic stenosis secondary to telangiectasias, likely he may undergo tracheostomy. The patient was noted to have atrial fibrillation on EKG prior to surgery. He was noted to be bradycardic at a heart rate of 53 beats per minute. The patient also has T-wave inversions. The patient is presumably in chronic atrial fibrillation and took 12.5 mg metoprolol prior to surgery. He takes it generally every eight hours and this was continued. On telemetry monitoring, the patient continues to show episodes of bradycardia with 2.5 second pauses on telemetry. The patient is currently on norepinephrine drip. PAST MEDICAL HISTORY: 1. Presumably chronic atrial fibrillation, bradycardic, not on anticoagulation due to gastrointestinal arteriovenous malformations and hereditary hemorrhagic telangiectasias. 2. Cor pulmonale. 3. Chronic hepatic failure. 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 No family members are present at the bedside. ALLERGIES: PENICILLIN. OUTPATIENT MEDICATIONS: Include: 1. Amicar. 2. Bumex 1 mg b.i.d. 3. Cholecalciferol. 4. Lactulose. 5. Keppra 500 mg p.o. b.i.d. 6. Metoprolol tartrate 12.5 mg p.o. q.8 hours. 7. Protonix. 8. Potassium chloride. 9. Rifaximin. Consultation Report [place] [address] [facility] [address] NAME: CINDY ABERNATHY : 42 STATUS : ADM IN PAT#: [id number] AGE: 76 ADM/REG DATE : 06/18/16 MR#: [id number] REPORT SERV DATE: 06/18/16 DICTATED BY: DATE: REPORT STATUS : Draft TRANSCRIBED BY: MODL DATE: 06/18/16 10.Sucralfate. 11.Tamoxifen. REVIEW OF SYSTEMS: Unobtainable as the patient is intubated and sedated. PHYSICAL EXAMINATION: VITAL SIGNS: The patient's heart rate has ranged from a low of 44 beats per minute to a high of 80 beats per minute. Blood pressure 116/59 on norepinephrine drip at 10 mcg per minute. Blood pressure is currently 116/59. GENERAL: Mr. Abernathy is a 76-year-old gentleman. He is currently intubated and sedated. HEENT: Face, there are multiple telangiectasias on the face and the body diffusely, I could not appreciate active bleeding at this time. NECK: I could not appreciate jugular venous distention. HEART: Irregular, bradycardic. Soft S1 and S2. There is a 3/6 systolic murmur, best appreciated at the apex. LUNGS: Clear to auscultation in all hinton. ABDOMEN: Soft and nontender. EXTREMITIES: Warm and well perfused. There is no pitting edema present. DATA: Hemoglobin 9.5, hematocrit 29.3, platelet count is 205. Sodium 139, potassium 4.9, BUN 17, creatinine 1.09, glucose is 173, ammonia is 116, INR is 1.3, cortisols 3, troponin 0.03. CPK 53, MB 1.5, TSH 1.1, total T4 7.9. No chest x-ray has been performed yet. An EKG performed on admission demonstrated atrial fibrillation with slow ventricular response at 53 beats per minute. There is low voltage noted in the limb leads. There is a prolonged QT interval with a QT interval of 506 milliseconds. There are T-wave inversions in V2 through V6, unclear duration. IMPRESSION/REPORT AND PLAN: 1. Bradycardic, likely chronic, on beta-leo therapy q.8 hours. 2. Hypotension, unclear etiology, possible hemorrhagic. 3. Presumably chronic atrial fibrillation with remote history of ablation in the past, on rate control strategy. 4. Murmur. 5. History of hereditary hemorrhagic telangiectasia. RECOMMENDATIONS: 1. We would start isoproterenol drip. 2. Continue dopamine. 3. Obtain the patient's outpatient cardiology records. 4. Stop the metoprolol. 5. I agree with replacing the patient's steroids with Solu-Cortef. 6. If the patient is unresponsive to isoproterenol and/or dopamine, would consider temporary wire and transition to permanent pacer placement. 7. It has been my pleasure to participate in his care. Consultation Report [place] [id number] [facility] [place]. [address] NAME: CINDY ABERNATHY : 42 STATUS : ADM IN [facility]#: [id number] AGE: 76 ADM/REG DATE : 06/18/16 MR#: [id number] REPORT SERV DATE: 06/18/16 DICTATED BY: DATE: REPORT STATUS : Draft TRANSCRIBED BY: MODMin DATE: 06/18/16 [facility]/NETTIE Selam Trinidad M.D. / [id number] CC: Drake Choi MD
[~2016-06-18 05:25] MED LIST: AMICAR PEG; BUM1 PEG; KCL20UDL PEG; KEPPRA500 PEG; LACTULOSE PEG; LOP25 PEG; PROTONIX PO; SUCR PEG; TAMOXIFEN20 M1 PEG; VITAMIN D2000 UNIT PEG; XIFAXAN550 MG PEG
[2016-06-18 06:57] LABS: BASOPHILS 0.3 %; BASOPHILS ABSOLUTE 0.02 10/3/uL (0.0-0.16); EOSINOPHILS 3.6 %; EOSINOPHILS ABSOLUTE 0.24 10/3/uL (0.0-0.53); HEMATOCRIT 30.8 % (40.0-51.0); HEMOGLOBIN 9.8 g/dL (13.6-17.8); IMMATURE GRANULOCYTES 0.1 %; IMMATURE GRANULOCYTES ABSOLUTE 0.01 10/3/uL (0.0-0.11); LYMPHOCYTES 10.9 %; LYMPHOCYTES ABSOLUTE 0.73 10/3/uL (0.67-4.30); MEAN PLATELET VOLUME 9.2 fL (9.2-13.0); NEUTROPHILS 70.1 %; NEUTROPHILS ABSOLUTE 4.68 10/3/uL (2.02-8.40); RBC DISTRIBUTION WIDTH 18.5 % (12.0-16.0); RED CELL COUNT 3.46 10/6/uL (4.7-6.1); WHITE BLOOD CELLS 6.7 10/3/uL (4.5-10.5)
[2016-06-18 07:00] LABS: MANUAL DIFF NO %; MEAN CORPUS HGB CONC 31.8 g/dL (32.0-36.0); MEAN CORPUSCULAR HEMOGLOB 28.3 pg (26.0-34.0); PLATELET COUNT 162 10/3/uL (150-400)
[2016-06-18 07:24] LABS: INTERNATIONAL NORMAL RATI 1.3 UNITS (-); PARTIAL THROMBO TIME 33.9 SEC (22.5-37.2); PROTIME (NOT ORD) 15.9 SEC (12.0-14.5)
[2016-06-18 15:20] LABS: BE (BASE EXCESS) 3.5 MEQ/L (0 +/- 2.5); CARBOXYHEMOGLOBIN 0.3 % (0-3); HCO3 (ACTUAL BICARBONATE) 28.4 MEQ/L (23-27); HEMOBLOGIN CONTENT 10.3 G/DL (14-18); INSTRUMENT SERIAL # 8083; METHEMOGLOBIN 0.3 % (0-3); MODE CMV; O2 CONTENT 15.2 VOL% (18-24); OPERATOR ID 13624; PCO2 (CO2 TENSION) 45 MMHG (35-45); PO2 (O2 TENSION) 311 MMHG (79-93); SAMPLE Arterial; TIDAL VOLUME 600 ML; pH 7.42 (7.37-7.43)
[2016-06-18 15:40] LABS: BASOPHILS 0.2 %; BASOPHILS ABSOLUTE 0.01 10/3/uL (0.0-0.16); EOSINOPHILS 0.2 %; EOSINOPHILS ABSOLUTE 0.01 10/3/uL (0.0-0.53); HEMATOCRIT 29.3 % (40.0-51.0); HEMOGLOBIN 9.5 g/dL (13.6-17.8); LYMPHOCYTES 6.8 %; LYMPHOCYTES ABSOLUTE 0.41 10/3/uL (0.67-4.30); MEAN CORPUS HGB CONC 32.4 g/dL (32.0-36.0); MEAN CORPUSCULAR HEMOGLOB 28.6 pg (26.0-34.0); MEAN CORPUSCULAR VOLUME 88.3 fL (80-100); MEAN PLATELET VOLUME 9.3 fL (9.2-13.0); MONOCYTES 3.7 %; MONOCYTES ABSOLUTE 0.22 10/3/uL (0.21-1.20); NEUTROPHILS 89.1 %; NEUTROPHILS ABSOLUTE 5.37 10/3/uL (2.02-8.40); PLATELET COUNT 205 10/3/uL (150-400); RED CELL COUNT 3.32 10/6/uL (4.7-6.1)
[2016-06-18 15:42] LABS: MANUAL DIFF NO %
[2016-06-18 16:03] LABS: BUN (BLOOD UREA NITROGEN) 17 MG/DL (6-23); CALCIUM, SERUM 8.7 MG/DL (8.5-10.4); CHLORIDE, SERUM 101 MMOL/L (96-112); CO2 (CARBON DIOXIDE) 32 MMOL/L (24-34); CREATININE 1.09 MG/DL (0.70-1.30); GFR AFRICAN AMERICAN 77 ML/MIN (>=60); GFR NON AFRICAN AMERICAN 66 ML/MIN (>=60); GLUCOSE, SERUM 173 MG/DL (60-99); PHOSPHORUS, SERUM 3.6 MG/DL (2.5-4.5); POTASSIUM, SERUM 4.9 MMOL/L (3.5-5.3); SODIUM, SERUM 139 MMOL/L (135-148); T4 (THYROXINE) TOTAL 7.8 MCG/DL (4.5-12.0); TROPONIN I 0.03 NG/ML (<0.05)
[2016-06-18 16:18] LABS: CPK 53 U/L (0-200); CPK (IF ELEVATED MB BANDS) 53 U/L (0-200)
[2016-06-18 16:19] LABS: CK-MB 1.5 NG/ML
[2016-06-19 05:18] LABS: BASOPHILS 0 %; EOSINOPHILS 0 %; HEMATOCRIT 27.4 % (40.0-51.0); HEMOGLOBIN 8.8 g/dL (13.6-17.8); IMMATURE GRANULOCYTES 0.3 %; IMMATURE GRANULOCYTES ABSOLUTE 0.02 10/3/uL (0.0-0.11); LYMPHOCYTES 8.4 %; MEAN CORPUS HGB CONC 32.1 g/dL (32.0-36.0); MEAN CORPUSCULAR HEMOGLOB 28.7 pg (26.0-34.0); MEAN CORPUSCULAR VOLUME 89.3 fL (80-100); MONOCYTES 12.7 %; MONOCYTES ABSOLUTE 0.91 10/3/uL (0.21-1.20); NEUTROPHILS 78.6 %; NEUTROPHILS ABSOLUTE 5.64 10/3/uL (2.02-8.40); PLATELET COUNT 178 10/3/uL (150-400); RED CELL COUNT 3.07 10/6/uL (4.7-6.1); WHITE BLOOD CELLS 7.2 10/3/uL (4.5-10.5)
[2016-06-19 05:22] LABS: MANUAL DIFF NO %
[2016-06-19 05:38] LABS: CHLORIDE, SERUM 100 MMOL/L (96-112); CO2 (CARBON DIOXIDE) 29 MMOL/L (24-34); CREATININE 1.36 MG/DL (0.70-1.30); GFR AFRICAN AMERICAN 59 ML/MIN (>=60); GFR NON AFRICAN AMERICAN 51 ML/MIN (>=60); POTASSIUM, SERUM 4.4 MMOL/L (3.5-5.3); SODIUM, SERUM 139 MMOL/L (135-148)
[2016-06-19 05:47] LABS: BUN (BLOOD UREA NITROGEN) 22 MG/DL (6-23)
[2016-06-19 05:48] LABS: CALCIUM, SERUM 8.4 MG/DL (8.5-10.4); GLUCOSE, SERUM 164 MG/DL (60-99)
[2016-06-20 03:57] LABS: BASOPHILS 0 %; EOSINOPHILS 0.1 %; EOSINOPHILS ABSOLUTE 0.01 10/3/uL (0.0-0.53); HEMATOCRIT 25.9 % (40.0-51.0); HEMOGLOBIN 8.4 g/dL (13.6-17.8); IMMATURE GRANULOCYTES 0.1 %; IMMATURE GRANULOCYTES ABSOLUTE 0.01 10/3/uL (0.0-0.11); LYMPHOCYTES 3.5 %; LYMPHOCYTES ABSOLUTE 0.28 10/3/uL (0.67-4.30); MEAN CORPUS HGB CONC 32.4 g/dL (32.0-36.0); MEAN CORPUSCULAR HEMOGLOB 28.9 pg (26.0-34.0); MEAN PLATELET VOLUME 9.2 fL (9.2-13.0); MONOCYTES 7.4 %; MONOCYTES ABSOLUTE 0.59 10/3/uL (0.21-1.20); NEUTROPHILS 88.9 %; NEUTROPHILS ABSOLUTE 7.03 10/3/uL (2.02-8.40); PLATELET COUNT 158 10/3/uL (150-400); RBC DISTRIBUTION WIDTH 18.2 % (12.0-16.0); RED CELL COUNT 2.91 10/6/uL (4.7-6.1); WHITE BLOOD CELLS 7.9 10/3/uL (4.5-10.5)
[2016-06-20 03:59] LABS: MANUAL DIFF NO %
[2016-06-20 04:08] LABS: INTERNATIONAL NORMAL RATI 1.3 UNITS (-); PROTIME (NOT ORD) 15.7 SEC (12.0-14.5)
[2016-06-20 04:14] LABS: A/G RATIO 0.7 (0.7-1.9); ALBUMIN 2.7 G/DL (3.5-5.0); CHLORIDE, SERUM 101 MMOL/L (96-112); CO2 (CARBON DIOXIDE) 27 MMOL/L (24-34); CREATININE 1.35 MG/DL (0.70-1.30); GFR AFRICAN AMERICAN 59 ML/MIN (>=60); GFR NON AFRICAN AMERICAN 51 ML/MIN (>=60); GLOBULIN 3.9 G/DL (2.5-4.1); POTASSIUM, SERUM 4.7 MMOL/L (3.5-5.3); SODIUM, SERUM 138 MMOL/L (135-148); TOTAL PROTEIN 6.6 G/DL (6.0-8.5)
[2016-06-20 04:15] LABS: BUN (BLOOD UREA NITROGEN) 28 MG/DL (6-23)
[2016-06-20 04:17] LABS: CALCIUM, SERUM 8.4 MG/DL (8.5-10.4); GLUCOSE, SERUM 144 MG/DL (60-99); PHOSPHORUS, SERUM 4.1 MG/DL (2.5-4.5); TOTAL BILIRUBIN 0.7 MG/DL (0-1.2)
[2016-06-20 04:18] LABS: ALKALINE PHOSPHATASE 72 U/L (45-117); SGOT(AST) 20 U/L (5-40); SGPT(ALT) 17 U/L (5-65)
[2016-06-21 03:21] LABS: BE (BASE EXCESS) 0.5 MEQ/L (0 +/- 2.5); CARBOXYHEMOGLOBIN 0.3 % (0-3); HCO3 (ACTUAL BICARBONATE) 24.1 MEQ/L (23-27); HEMOBLOGIN CONTENT 9.1 G/DL (14-18); INSTRUMENT SERIAL # 8083; METHEMOGLOBIN 0.3 % (0-3); MODE CMV; O2 CONTENT 12.1 VOL% (18-24); OPERATOR ID 15231; PCO2 (CO2 TENSION) 35 MMHG (35-45); PO2 (O2 TENSION) 73 MMHG (79-93); SAMPLE Arterial; TIDAL VOLUME 600 ML; pH 7.46 (7.37-7.43)
[2016-06-21 06:34] LABS: BASOPHILS 0 %; EOSINOPHILS 0 %; HEMOGLOBIN 8.4 g/dL (13.6-17.8); IMMATURE GRANULOCYTES 0.4 %; IMMATURE GRANULOCYTES ABSOLUTE 0.03 10/3/uL (0.0-0.11); LYMPHOCYTES 5.7 %; LYMPHOCYTES ABSOLUTE 0.46 10/3/uL (0.67-4.30); MANUAL DIFF NO %; MEAN CORPUS HGB CONC 32.3 g/dL (32.0-36.0); MEAN CORPUSCULAR HEMOGLOB 28.9 pg (26.0-34.0); MEAN CORPUSCULAR VOLUME 89.3 fL (80-100); MEAN PLATELET VOLUME 8.9 fL (9.2-13.0); MONOCYTES 11.2 %; MONOCYTES ABSOLUTE 0.91 10/3/uL (0.21-1.20); NEUTROPHILS 82.7 %; NEUTROPHILS ABSOLUTE 6.72 10/3/uL (2.02-8.40); PLATELET COUNT 163 10/3/uL (150-400); RED CELL COUNT 2.91 10/6/uL (4.7-6.1); WHITE BLOOD CELLS 8.1 10/3/uL (4.5-10.5)
[2016-06-21 07:04] LABS: A/G RATIO 0.7 (0.7-1.9); ALBUMIN 2.7 G/DL (3.5-5.0); ALKALINE PHOSPHATASE 77 U/L (45-117); BUN (BLOOD UREA NITROGEN) 30 MG/DL (6-23); CALCIUM, SERUM 8.2 MG/DL (8.5-10.4); CHLORIDE, SERUM 101 MMOL/L (96-112); CO2 (CARBON DIOXIDE) 27 MMOL/L (24-34); CREATININE 1.32 MG/DL (0.70-1.30); GFR AFRICAN AMERICAN 61 ML/MIN (>=60); GFR NON AFRICAN AMERICAN 52 ML/MIN (>=60); GLOBULIN 3.8 G/DL (2.5-4.1); PHOSPHORUS, SERUM 4.4 MG/DL (2.5-4.5); POTASSIUM, SERUM 5.3 MMOL/L (3.5-5.3); SODIUM, SERUM 138 MMOL/L (135-148); TOTAL BILIRUBIN 0.8 MG/DL (0-1.2); TOTAL PROTEIN 6.5 G/DL (6.0-8.5)
[2016-06-21 07:05] LABS: GLUCOSE, SERUM 108 MG/DL (60-99); SGOT(AST) 15 U/L (5-40); SGPT(ALT) 19 U/L (5-65)
[2016-06-22 03:40] LABS: BE (BASE EXCESS) 0.7 MEQ/L (0 +/- 2.5); CARBOXYHEMOGLOBIN 0.5 % (0-3); HCO3 (ACTUAL BICARBONATE) 24.9 MEQ/L (23-27); HEMOBLOGIN CONTENT 8.2 G/DL (14-18); INSTRUMENT SERIAL # 8083; METHEMOGLOBIN 0.3 % (0-3); MODE CMV; O2 CONTENT 11.4 VOL% (18-24); OPERATOR ID 17370; PCO2 (CO2 TENSION) 38 MMHG (35-45); PO2 (O2 TENSION) 100 MMHG (79-93); SAMPLE Arterial; pH 7.44 (7.37-7.43)
[2016-06-22 05:31] LABS: BASOPHILS 0 %; EOSINOPHILS 0 %; HEMATOCRIT 24.8 % (40.0-51.0); IMMATURE GRANULOCYTES 0.3 %; IMMATURE GRANULOCYTES ABSOLUTE 0.02 10/3/uL (0.0-0.11); LYMPHOCYTES 5.9 %; LYMPHOCYTES ABSOLUTE 0.44 10/3/uL (0.67-4.30); MEAN CORPUS HGB CONC 32.3 g/dL (32.0-36.0); MEAN CORPUSCULAR HEMOGLOB 28.5 pg (26.0-34.0); MEAN CORPUSCULAR VOLUME 88.3 fL (80-100); MEAN PLATELET VOLUME 8.8 fL (9.2-13.0); MONOCYTES 11.2 %; MONOCYTES ABSOLUTE 0.83 10/3/uL (0.21-1.20); NEUTROPHILS 82.6 %; NEUTROPHILS ABSOLUTE 6.12 10/3/uL (2.02-8.40); PLATELET COUNT 147 10/3/uL (150-400); RBC DISTRIBUTION WIDTH 17.8 % (12.0-16.0); RED CELL COUNT 2.81 10/6/uL (4.7-6.1); WHITE BLOOD CELLS 7.4 10/3/uL (4.5-10.5)
[2016-06-22 05:33] LABS: MANUAL DIFF NO %
[2016-06-22 05:38] LABS: INTERNATIONAL NORMAL RATI 1.3 UNITS (-); PROTIME (NOT ORD) 15.9 SEC (12.0-14.5)
[2016-06-22 05:49] LABS: ALBUMIN 2.6 G/DL (3.5-5.0); ALKALINE PHOSPHATASE 73 U/L (45-117); BUN (BLOOD UREA NITROGEN) 35 MG/DL (6-23); CALCIUM, SERUM 8.4 MG/DL (8.5-10.4); CHLORIDE, SERUM 102 MMOL/L (96-112); CO2 (CARBON DIOXIDE) 25 MMOL/L (24-34); CREATININE 1.47 MG/DL (0.70-1.30); DIRECT BILIRUBIN 0.3 MG/DL (0.0-0.4); GFR AFRICAN AMERICAN 53 ML/MIN (>=60); GFR NON AFRICAN AMERICAN 46 ML/MIN (>=60); INDIRECT BILIRUBIN(NOT ORDER) 0.4 MG/DL (0.1-0.9); PHOSPHORUS, SERUM 4.4 MG/DL (2.5-4.5); POTASSIUM, SERUM 5.2 MMOL/L (3.5-5.3); SODIUM, SERUM 137 MMOL/L (135-148); TOTAL BILIRUBIN 0.7 MG/DL (0-1.2); TOTAL PROTEIN 6.4 G/DL (6.0-8.5)
[2016-06-22 05:50] LABS: GLUCOSE, SERUM 100 MG/DL (60-99); SGOT(AST) 14 U/L (5-40); SGPT(ALT) 14 U/L (5-65)
[2016-06-22 14:00] LABS: PREALBUMIN 13.7 MG/DL (17.0-43.0)
[2016-06-23 05:25] LABS: BASOPHILS 0.1 %; BASOPHILS ABSOLUTE 0.01 10/3/uL (0.0-0.16); EOSINOPHILS 0.4 %; EOSINOPHILS ABSOLUTE 0.03 10/3/uL (0.0-0.53); HEMATOCRIT 25.1 % (40.0-51.0); HEMOGLOBIN 7.9 g/dL (13.6-17.8); IMMATURE GRANULOCYTES 0.3 %; IMMATURE GRANULOCYTES ABSOLUTE 0.02 10/3/uL (0.0-0.11); LYMPHOCYTES ABSOLUTE 0.54 10/3/uL (0.67-4.30); MEAN CORPUS HGB CONC 31.5 g/dL (32.0-36.0); MEAN CORPUSCULAR HEMOGLOB 27.7 pg (26.0-34.0); MEAN CORPUSCULAR VOLUME 88.1 fL (80-100); MEAN PLATELET VOLUME 8.8 fL (9.2-13.0); MONOCYTES 11.9 %; NEUTROPHILS 79.3 %; NEUTROPHILS ABSOLUTE 5.35 10/3/uL (2.02-8.40); PLATELET COUNT 164 10/3/uL (150-400); RBC DISTRIBUTION WIDTH 17.9 % (12.0-16.0); RED CELL COUNT 2.85 10/6/uL (4.7-6.1); WHITE BLOOD CELLS 6.8 10/3/uL (4.5-10.5)
[2016-06-23 05:26] LABS: MANUAL DIFF NO %
[2016-06-23 05:44] LABS: BUN (BLOOD UREA NITROGEN) 37 MG/DL (6-23); CHLORIDE, SERUM 104 MMOL/L (96-112); CO2 (CARBON DIOXIDE) 26 MMOL/L (24-34); CREATININE 1.25 MG/DL (0.70-1.30); GFR AFRICAN AMERICAN 65 ML/MIN (>=60); GFR NON AFRICAN AMERICAN 56 ML/MIN (>=60); POTASSIUM, SERUM 4.3 MMOL/L (3.5-5.3); SODIUM, SERUM 141 MMOL/L (135-148)
[2016-06-23 05:48] LABS: CALCIUM, SERUM 8.2 MG/DL (8.5-10.4); GLUCOSE, SERUM 117 MG/DL (60-99)
[2016-06-23 09:03] LABS: A/G RATIO 0.7 (0.7-1.9); ALBUMIN 2.6 G/DL (3.5-5.0); ALKALINE PHOSPHATASE 73 U/L (45-117); GLOBULIN 3.6 G/DL (2.5-4.1); TOTAL BILIRUBIN 0.7 MG/DL (0-1.2); TOTAL PROTEIN 6.2 G/DL (6.0-8.5)
[2016-06-23 09:05] LABS: SGOT(AST) 13 U/L (5-40); SGPT(ALT) 13 U/L (5-65)
[2016-06-23 09:18] LABS: PREALBUMIN 13.6 MG/DL (17.0-43.0)
[2016-06-24 04:17] LABS: BASOPHILS 0 %; EOSINOPHILS 0.3 %; EOSINOPHILS ABSOLUTE 0.02 10/3/uL (0.0-0.53); HEMATOCRIT 25.1 % (40.0-51.0); HEMOGLOBIN 8.2 g/dL (13.6-17.8); IMMATURE GRANULOCYTES 0.3 %; IMMATURE GRANULOCYTES ABSOLUTE 0.02 10/3/uL (0.0-0.11); LYMPHOCYTES 6.1 %; LYMPHOCYTES ABSOLUTE 0.42 10/3/uL (0.67-4.30); MEAN CORPUS HGB CONC 32.7 g/dL (32.0-36.0); MEAN CORPUSCULAR HEMOGLOB 28.6 pg (26.0-34.0); MEAN CORPUSCULAR VOLUME 87.5 fL (80-100); MEAN PLATELET VOLUME 8.7 fL (9.2-13.0); MONOCYTES ABSOLUTE 0.76 10/3/uL (0.21-1.20); NEUTROPHILS 82.3 %; NEUTROPHILS ABSOLUTE 5.68 10/3/uL (2.02-8.40); PLATELET COUNT 154 10/3/uL (150-400); RED CELL COUNT 2.87 10/6/uL (4.7-6.1); WHITE BLOOD CELLS 6.9 10/3/uL (4.5-10.5)
[2016-06-24 04:21] LABS: MANUAL DIFF NO %
[2016-06-24 04:36] LABS: BUN (BLOOD UREA NITROGEN) 34 MG/DL (6-23); CALCIUM, SERUM 8.3 MG/DL (8.5-10.4); CHLORIDE, SERUM 107 MMOL/L (96-112); CO2 (CARBON DIOXIDE) 29 MMOL/L (24-34); CREATININE 0.98 MG/DL (0.70-1.30); GFR AFRICAN AMERICAN 87 ML/MIN (>=60); GFR NON AFRICAN AMERICAN 75 ML/MIN (>=60); PHOSPHORUS, SERUM 2.1 MG/DL (2.5-4.5); POTASSIUM, SERUM 3.8 MMOL/L (3.5-5.3); SODIUM, SERUM 145 MMOL/L (135-148)
[2016-06-24 04:44] LABS: GLUCOSE, SERUM 126 MG/DL (60-99)
[2016-06-25 04:48] LABS: BASOPHILS 0 %; EOSINOPHILS 0.6 %; EOSINOPHILS ABSOLUTE 0.04 10/3/uL (0.0-0.53); HEMATOCRIT 26.3 % (40.0-51.0); HEMOGLOBIN 8.3 g/dL (13.6-17.8); IMMATURE GRANULOCYTES 0.3 %; IMMATURE GRANULOCYTES ABSOLUTE 0.02 10/3/uL (0.0-0.11); LYMPHOCYTES 7.3 %; LYMPHOCYTES ABSOLUTE 0.53 10/3/uL (0.67-4.30); MEAN CORPUS HGB CONC 31.6 g/dL (32.0-36.0); MEAN CORPUSCULAR HEMOGLOB 27.9 pg (26.0-34.0); MEAN CORPUSCULAR VOLUME 88.3 fL (80-100); MEAN PLATELET VOLUME 8.7 fL (9.2-13.0); MONOCYTES 12.7 %; MONOCYTES ABSOLUTE 0.92 10/3/uL (0.21-1.20); NEUTROPHILS 79.1 %; NEUTROPHILS ABSOLUTE 5.72 10/3/uL (2.02-8.40); PLATELET COUNT 196 10/3/uL (150-400); RBC DISTRIBUTION WIDTH 18.5 % (12.0-16.0); RED CELL COUNT 2.98 10/6/uL (4.7-6.1); WHITE BLOOD CELLS 7.2 10/3/uL (4.5-10.5)
[2016-06-25 04:50] LABS: MANUAL DIFF NO %
[2016-06-25 05:04] LABS: BUN (BLOOD UREA NITROGEN) 33 MG/DL (6-23); CHLORIDE, SERUM 109 MMOL/L (96-112); CO2 (CARBON DIOXIDE) 31 MMOL/L (24-34); CREATININE 0.95 MG/DL (0.70-1.30); GFR AFRICAN AMERICAN 90 ML/MIN (>=60); GFR NON AFRICAN AMERICAN 78 ML/MIN (>=60); POTASSIUM, SERUM 3.8 MMOL/L (3.5-5.3); SODIUM, SERUM 149 MMOL/L (135-148)
[2016-06-25 05:16] LABS: CALCIUM, SERUM 8.2 MG/DL (8.5-10.4); GLUCOSE, SERUM 121 MG/DL (60-99); PHOSPHORUS, SERUM 2.1 MG/DL (2.5-4.5)
[2016-06-26 06:44] LABS: BASOPHILS 0 %; EOSINOPHILS 1.6 %; EOSINOPHILS ABSOLUTE 0.11 10/3/uL (0.0-0.53); HEMATOCRIT 26.7 % (40.0-51.0); HEMOGLOBIN 8.1 g/dL (13.6-17.8); IMMATURE GRANULOCYTES 0.1 %; IMMATURE GRANULOCYTES ABSOLUTE 0.01 10/3/uL (0.0-0.11); LYMPHOCYTES 6.9 %; LYMPHOCYTES ABSOLUTE 0.48 10/3/uL (0.67-4.30); MEAN CORPUS HGB CONC 30.3 g/dL (32.0-36.0); MEAN CORPUSCULAR HEMOGLOB 27.5 pg (26.0-34.0); MEAN CORPUSCULAR VOLUME 90.5 fL (80-100); MEAN PLATELET VOLUME 8.8 fL (9.2-13.0); MONOCYTES 12.3 %; MONOCYTES ABSOLUTE 0.86 10/3/uL (0.21-1.20); NEUTROPHILS 79.1 %; NEUTROPHILS ABSOLUTE 5.52 10/3/uL (2.02-8.40); PLATELET COUNT 189 10/3/uL (150-400); RBC DISTRIBUTION WIDTH 18.6 % (12.0-16.0); RED CELL COUNT 2.95 10/6/uL (4.7-6.1)
[2016-06-26 06:45] LABS: MANUAL DIFF NO %
[2016-06-26 06:54] LABS: BUN (BLOOD UREA NITROGEN) 30 MG/DL (6-23); CALCIUM, SERUM 8.3 MG/DL (8.5-10.4); CHLORIDE, SERUM 110 MMOL/L (96-112); CO2 (CARBON DIOXIDE) 34 MMOL/L (24-34); CREATININE 0.83 MG/DL (0.70-1.30); GFR AFRICAN AMERICAN 100 ML/MIN (>=60); GFR NON AFRICAN AMERICAN 86 ML/MIN (>=60); POTASSIUM, SERUM 3.5 MMOL/L (3.5-5.3); SODIUM, SERUM 152 MMOL/L (135-148)
[2016-06-26 06:56] LABS: GLUCOSE, SERUM 131 MG/DL (60-99); PHOSPHORUS, SERUM 2.9 MG/DL (2.5-4.5)
[2016-06-27 05:24] LABS: BASOPHILS 0.2 %; BASOPHILS ABSOLUTE 0.01 10/3/uL (0.0-0.16); EOSINOPHILS 5.8 %; EOSINOPHILS ABSOLUTE 0.37 10/3/uL (0.0-0.53); HEMATOCRIT 28.8 % (40.0-51.0); HEMOGLOBIN 8.8 g/dL (13.6-17.8); IMMATURE GRANULOCYTES 0.2 %; IMMATURE GRANULOCYTES ABSOLUTE 0.01 10/3/uL (0.0-0.11); LYMPHOCYTES 12.6 %; LYMPHOCYTES ABSOLUTE 0.81 10/3/uL (0.67-4.30); MEAN CORPUS HGB CONC 30.6 g/dL (32.0-36.0); MEAN CORPUSCULAR HEMOGLOB 27.8 pg (26.0-34.0); MEAN CORPUSCULAR VOLUME 90.9 fL (80-100); MEAN PLATELET VOLUME 8.5 fL (9.2-13.0); MONOCYTES 12.1 %; MONOCYTES ABSOLUTE 0.78 10/3/uL (0.21-1.20); NEUTROPHILS 69.1 %; NEUTROPHILS ABSOLUTE 4.44 10/3/uL (2.02-8.40); PLATELET COUNT 159 10/3/uL (150-400); RBC DISTRIBUTION WIDTH 18.4 % (12.0-16.0); RED CELL COUNT 3.17 10/6/uL (4.7-6.1); WHITE BLOOD CELLS 6.4 10/3/uL (4.5-10.5)
[2016-06-27 05:26] LABS: MANUAL DIFF NO %
[2016-06-27 05:42] LABS: ALBUMIN 2.4 G/DL (3.5-5.0); BUN (BLOOD UREA NITROGEN) 27 MG/DL (6-23); CHLORIDE, SERUM 109 MMOL/L (96-112); CO2 (CARBON DIOXIDE) 36 MMOL/L (24-34); CREATININE 0.79 MG/DL (0.70-1.30); GFR AFRICAN AMERICAN 102 ML/MIN (>=60); GFR NON AFRICAN AMERICAN 88 ML/MIN (>=60); POTASSIUM, SERUM 3.4 MMOL/L (3.5-5.3); SODIUM, SERUM 154 MMOL/L (135-148)
[2016-06-27 05:49] LABS: CALCIUM, SERUM 8.6 MG/DL (8.5-10.4); GLUCOSE, SERUM 96 MG/DL (60-99); PHOSPHORUS, SERUM 2.4 MG/DL (2.5-4.5)
[2016-06-28 04:19] LABS: A/G RATIO 0.6 (0.7-1.9); ALBUMIN 2.3 G/DL (3.5-5.0); ALKALINE PHOSPHATASE 84 U/L (45-117); BUN (BLOOD UREA NITROGEN) 28 MG/DL (6-23); CALCIUM, SERUM 8.2 MG/DL (8.5-10.4); CHLORIDE, SERUM 109 MMOL/L (96-112); CO2 (CARBON DIOXIDE) 36 MMOL/L (24-34); CREATININE 0.73 MG/DL (0.70-1.30); GFR AFRICAN AMERICAN 105 ML/MIN (>=60); GFR NON AFRICAN AMERICAN 91 ML/MIN (>=60); PHOSPHORUS, SERUM 2.2 MG/DL (2.5-4.5); POTASSIUM, SERUM 3.4 MMOL/L (3.5-5.3); PREALBUMIN 14.9 MG/DL (17.0-43.0); SODIUM, SERUM 154 MMOL/L (135-148); TOTAL PROTEIN 6.3 G/DL (6.0-8.5)
[2016-06-28 04:26] LABS: BASOPHILS 0.1 %; BASOPHILS ABSOLUTE 0.01 10/3/uL (0.0-0.16); EOSINOPHILS 4.6 %; EOSINOPHILS ABSOLUTE 0.31 10/3/uL (0.0-0.53); HEMATOCRIT 28.2 % (40.0-51.0); HEMOGLOBIN 8.6 g/dL (13.6-17.8); IMMATURE GRANULOCYTES 0.1 %; IMMATURE GRANULOCYTES ABSOLUTE 0.01 10/3/uL (0.0-0.11); LYMPHOCYTES 11.9 %; LYMPHOCYTES ABSOLUTE 0.81 10/3/uL (0.67-4.30); MEAN CORPUS HGB CONC 30.5 g/dL (32.0-36.0); MEAN CORPUSCULAR HEMOGLOB 27.9 pg (26.0-34.0); MEAN CORPUSCULAR VOLUME 91.6 fL (80-100); MEAN PLATELET VOLUME 8.7 fL (9.2-13.0); MONOCYTES 10.3 %; NEUTROPHILS ABSOLUTE 4.95 10/3/uL (2.02-8.40); PLATELET COUNT 161 10/3/uL (150-400); RBC DISTRIBUTION WIDTH 18.6 % (12.0-16.0); RED CELL COUNT 3.08 10/6/uL (4.7-6.1); WHITE BLOOD CELLS 6.8 10/3/uL (4.5-10.5)
[2016-06-28 04:27] LABS: GLUCOSE, SERUM 104 MG/DL (60-99); SGPT(ALT) 19 U/L (5-65)
[2016-06-28 04:28] LABS: SGOT(AST) 20 U/L (5-40)
[2016-06-28 04:29] LABS: MANUAL DIFF NO %
[2016-06-30 01:37] LABS: BASOPHILS 0.3 %; BASOPHILS ABSOLUTE 0.02 10/3/uL (0.0-0.16); EOSINOPHILS 4.2 %; EOSINOPHILS ABSOLUTE 0.32 10/3/uL (0.0-0.53); HEMATOCRIT 28.5 % (40.0-51.0); HEMOGLOBIN 8.5 g/dL (13.6-17.8); IMMATURE GRANULOCYTES 0.3 %; IMMATURE GRANULOCYTES ABSOLUTE 0.02 10/3/uL (0.0-0.11); LYMPHOCYTES 10.1 %; LYMPHOCYTES ABSOLUTE 0.77 10/3/uL (0.67-4.30); MEAN CORPUS HGB CONC 29.8 g/dL (32.0-36.0); MEAN CORPUSCULAR HEMOGLOB 27.4 pg (26.0-34.0); MEAN CORPUSCULAR VOLUME 91.9 fL (80-100); MEAN PLATELET VOLUME 9.2 fL (9.2-13.0); MONOCYTES 8.1 %; MONOCYTES ABSOLUTE 0.62 10/3/uL (0.21-1.20); NEUTROPHILS ABSOLUTE 5.88 10/3/uL (2.02-8.40); PLATELET COUNT 140 10/3/uL (150-400); RBC DISTRIBUTION WIDTH 18.8 % (12.0-16.0); WHITE BLOOD CELLS 7.6 10/3/uL (4.5-10.5)
[2016-06-30 01:45] LABS: MANUAL DIFF NO %
[2016-06-30 01:50] LABS: CALCIUM, SERUM 8.3 MG/DL (8.5-10.4); CHLORIDE, SERUM 109 MMOL/L (96-112); CO2 (CARBON DIOXIDE) 37 MMOL/L (24-34); CREATININE 0.78 MG/DL (0.70-1.30); GFR AFRICAN AMERICAN 102 ML/MIN (>=60); GFR NON AFRICAN AMERICAN 88 ML/MIN (>=60); POTASSIUM, SERUM 3.6 MMOL/L (3.5-5.3); SODIUM, SERUM 154 MMOL/L (135-148)
[2016-06-30 01:50] LABS: INTERNATIONAL NORMAL RATI 1.3 UNITS (-); PROTIME (NOT ORD) 15.8 SEC (12.0-14.5)
[2016-06-30 01:53] LABS: BUN (BLOOD UREA NITROGEN) 24 MG/DL (6-23); GLUCOSE, SERUM 103 MG/DL (60-99)
[2016-06-30 12:13] LABS: BUN (BLOOD UREA NITROGEN) 24 MG/DL (6-23); CHLORIDE, SERUM 108 MMOL/L (96-112); CO2 (CARBON DIOXIDE) 36 MMOL/L (24-34); CREATININE 0.83 MG/DL (0.70-1.30); GFR AFRICAN AMERICAN 100 ML/MIN (>=60); GFR NON AFRICAN AMERICAN 86 ML/MIN (>=60); POTASSIUM, SERUM 3.6 MMOL/L (3.5-5.3); SODIUM, SERUM 152 MMOL/L (135-148)
[2016-06-30 12:14] LABS: CALCIUM, SERUM 8.7 MG/DL (8.5-10.4); GLUCOSE, SERUM 109 MG/DL (60-99)
[2016-07-01 05:08] LABS: BASOPHILS 0.3 %; BASOPHILS ABSOLUTE 0.02 10/3/uL (0.0-0.16); EOSINOPHILS 3.7 %; EOSINOPHILS ABSOLUTE 0.27 10/3/uL (0.0-0.53); HEMATOCRIT 26.5 % (40.0-51.0); HEMOGLOBIN 8.2 g/dL (13.6-17.8); IMMATURE GRANULOCYTES 0.3 %; IMMATURE GRANULOCYTES ABSOLUTE 0.02 10/3/uL (0.0-0.11); LYMPHOCYTES 11.3 %; LYMPHOCYTES ABSOLUTE 0.82 10/3/uL (0.67-4.30); MEAN CORPUS HGB CONC 30.9 g/dL (32.0-36.0); MEAN CORPUSCULAR HEMOGLOB 27.8 pg (26.0-34.0); MEAN CORPUSCULAR VOLUME 89.8 fL (80-100); MEAN PLATELET VOLUME 9.6 fL (9.2-13.0); MONOCYTES 6.2 %; MONOCYTES ABSOLUTE 0.45 10/3/uL (0.21-1.20); NEUTROPHILS 78.2 %; NEUTROPHILS ABSOLUTE 5.68 10/3/uL (2.02-8.40); PLATELET COUNT 121 10/3/uL (150-400); RBC DISTRIBUTION WIDTH 19.1 % (12.0-16.0); RED CELL COUNT 2.95 10/6/uL (4.7-6.1); WHITE BLOOD CELLS 7.3 10/3/uL (4.5-10.5)
[2016-07-01 05:09] LABS: MANUAL DIFF NO %
[2016-07-01 05:27] LABS: BUN (BLOOD UREA NITROGEN) 25 MG/DL (6-23); CHLORIDE, SERUM 107 MMOL/L (96-112); CO2 (CARBON DIOXIDE) 38 MMOL/L (24-34); CREATININE 0.73 MG/DL (0.70-1.30); GFR AFRICAN AMERICAN 105 ML/MIN (>=60); GFR NON AFRICAN AMERICAN 91 ML/MIN (>=60); POTASSIUM, SERUM 3.6 MMOL/L (3.5-5.3); SODIUM, SERUM 151 MMOL/L (135-148)
[2016-07-01 05:33] LABS: CALCIUM, SERUM 8.4 MG/DL (8.5-10.4); GLUCOSE, SERUM 97 MG/DL (60-99)
[2016-07-01 22:39] LABS: HEMATOCRIT 27.2 % (40.0-51.0); HEMOGLOBIN 8.3 g/dL (13.6-17.8)
[2016-07-02 05:36] LABS: BASOPHILS 0.3 %; BASOPHILS ABSOLUTE 0.02 10/3/uL (0.0-0.16); HEMATOCRIT 26.2 % (40.0-51.0); HEMOGLOBIN 7.9 g/dL (13.6-17.8); IMMATURE GRANULOCYTES 0.3 %; IMMATURE GRANULOCYTES ABSOLUTE 0.02 10/3/uL (0.0-0.11); LYMPHOCYTES 4.5 %; LYMPHOCYTES ABSOLUTE 0.34 10/3/uL (0.67-4.30); MEAN CORPUS HGB CONC 30.2 g/dL (32.0-36.0); MEAN CORPUSCULAR HEMOGLOB 27.6 pg (26.0-34.0); MEAN CORPUSCULAR VOLUME 91.6 fL (80-100); MEAN PLATELET VOLUME 9.7 fL (9.2-13.0); MONOCYTES 14.5 %; MONOCYTES ABSOLUTE 1.09 10/3/uL (0.21-1.20); NEUTROPHILS 76.4 %; NEUTROPHILS ABSOLUTE 5.73 10/3/uL (2.02-8.40); PLATELET COUNT 110 10/3/uL (150-400); RED CELL COUNT 2.86 10/6/uL (4.7-6.1); WHITE BLOOD CELLS 7.5 10/3/uL (4.5-10.5)
[2016-07-02 05:46] LABS: A/G RATIO 0.6 (0.7-1.9); ALBUMIN 2.3 G/DL (3.5-5.0); BUN (BLOOD UREA NITROGEN) 26 MG/DL (6-23); CHLORIDE, SERUM 106 MMOL/L (96-112); CO2 (CARBON DIOXIDE) 37 MMOL/L (24-34); CREATININE 0.73 MG/DL (0.70-1.30); GFR AFRICAN AMERICAN 105 ML/MIN (>=60); GFR NON AFRICAN AMERICAN 91 ML/MIN (>=60); MANUAL DIFF NO %; POTASSIUM, SERUM 3.5 MMOL/L (3.5-5.3); SODIUM, SERUM 149 MMOL/L (135-148); TOTAL PROTEIN 6.3 G/DL (6.0-8.5)
[2016-07-02 05:56] LABS: ALKALINE PHOSPHATASE 107 U/L (45-117); CALCIUM, SERUM 8.2 MG/DL (8.5-10.4); GLUCOSE, SERUM 88 MG/DL (60-99); SGOT(AST) 30 U/L (5-40); SGPT(ALT) 31 U/L (5-65)
[2016-07-03 03:37] LABS: BASOPHILS 0.3 %; BASOPHILS ABSOLUTE 0.02 10/3/uL (0.0-0.16); EOSINOPHILS 4.6 %; EOSINOPHILS ABSOLUTE 0.31 10/3/uL (0.0-0.53); HEMATOCRIT 26.7 % (40.0-51.0); IMMATURE GRANULOCYTES 0.3 %; IMMATURE GRANULOCYTES ABSOLUTE 0.02 10/3/uL (0.0-0.11); LYMPHOCYTES 11.6 %; LYMPHOCYTES ABSOLUTE 0.78 10/3/uL (0.67-4.30); MANUAL DIFF NO %; MEAN CORPUSCULAR HEMOGLOB 27.9 pg (26.0-34.0); MEAN PLATELET VOLUME 9.4 fL (9.2-13.0); MONOCYTES 10.3 %; MONOCYTES ABSOLUTE 0.69 10/3/uL (0.21-1.20); NEUTROPHILS 72.9 %; PLATELET COUNT 104 10/3/uL (150-400); RBC DISTRIBUTION WIDTH 19.7 % (12.0-16.0); RED CELL COUNT 2.87 10/6/uL (4.7-6.1); WHITE BLOOD CELLS 6.7 10/3/uL (4.5-10.5)
[2016-07-03 03:46] LABS: INTERNATIONAL NORMAL RATI 1.3 UNITS (-); PROTIME (NOT ORD) 15.8 SEC (12.0-14.5)
[2016-07-03 03:47] LABS: PARTIAL THROMBO TIME 33.9 SEC (22.5-37.2)
[2016-07-03 03:54] LABS: BUN (BLOOD UREA NITROGEN) 25 MG/DL (6-23); CALCIUM, SERUM 8.2 MG/DL (8.5-10.4); CHLORIDE, SERUM 106 MMOL/L (96-112); CO2 (CARBON DIOXIDE) 37 MMOL/L (24-34); CREATININE 0.77 MG/DL (0.70-1.30); FERRITIN 17 NG/ML (26-388); GFR AFRICAN AMERICAN 103 ML/MIN (>=60); GFR NON AFRICAN AMERICAN 89 ML/MIN (>=60); IRON BINDING CAPACITY 283 MCG/DL (250-450); IRON, SERUM 35 MCG/DL (35-150); SODIUM, SERUM 148 MMOL/L (135-148)
[2016-07-03 03:55] LABS: GLUCOSE, SERUM 88 MG/DL (60-99)
[2016-07-03 08:50] LABS: HEMOGLOBIN 7.9 g/dL (13.6-17.8)
[2016-07-03 23:02] LABS: ALLENS TEST Pos; BE (BASE EXCESS) 4.7 MEQ/L (0 +/- 2.5); CARBOXYHEMOGLOBIN 0.8 % (0-3); DEVICE TM; HCO3 (ACTUAL BICARBONATE) 32.9 MEQ/L (23-27); HEMOBLOGIN CONTENT 9.1 G/DL (14-18); INSTRUMENT SERIAL # 8083; METHEMOGLOBIN 0.4 % (0-3); O2 CONTENT 12.8 VOL% (18-24); OPERATOR ID 13861; PCO2 (CO2 TENSION) 73 MMHG (35-45); PO2 (O2 TENSION) 155 MMHG (79-93); SAMPLE Arterial; pH 7.27 (7.37-7.43)
[2016-07-03 23:37] LABS: HEMATOCRIT 27.4 % (40.0-51.0); HEMOGLOBIN 8.1 g/dL (13.6-17.8)
[2016-07-03 23:46] LABS: INTERNATIONAL NORMAL RATI 1.3 UNITS (-); PARTIAL THROMBO TIME 33.2 SEC (22.5-37.2); PROTIME (NOT ORD) 15.6 SEC (12.0-14.5)
[2016-07-04 04:30] LABS: ALLENS TEST Pos; BE (BASE EXCESS) 5.6 MEQ/L (0 +/- 2.5); CARBOXYHEMOGLOBIN 0.5 % (0-3); HCO3 (ACTUAL BICARBONATE) 32.7 MEQ/L (23-27); HEMOBLOGIN CONTENT 10.4 G/DL (14-18); INSTRUMENT SERIAL # 35151; METHEMOGLOBIN 0.6 % (0-3); MODE CMV; O2 CONTENT 15.8 VOL% (18-24); OPERATOR ID 31061; PCO2 (CO2 TENSION) 62 MMHG (35-45); PO2 (O2 TENSION) 486 MMHG (79-93); SAMPLE Arterial; TIDAL VOLUME 550 ML; pH 7.34 (7.37-7.43)
[2016-07-04 08:20] LABS: BASOPHILS 0.2 %; BASOPHILS ABSOLUTE 0.02 10/3/uL (0.0-0.16); EOSINOPHILS ABSOLUTE 0.09 10/3/uL (0.0-0.53); HEMATOCRIT 26.6 % (40.0-51.0); HEMOGLOBIN 8.2 g/dL (13.6-17.8); IMMATURE GRANULOCYTES 0.2 %; IMMATURE GRANULOCYTES ABSOLUTE 0.02 10/3/uL (0.0-0.11); LYMPHOCYTES 9.9 %; LYMPHOCYTES ABSOLUTE 0.87 10/3/uL (0.67-4.30); MEAN CORPUS HGB CONC 30.8 g/dL (32.0-36.0); MEAN CORPUSCULAR HEMOGLOB 28.9 pg (26.0-34.0); MEAN CORPUSCULAR VOLUME 93.7 fL (80-100); MEAN PLATELET VOLUME 10.2 fL (9.2-13.0); MONOCYTES 7.1 %; MONOCYTES ABSOLUTE 0.62 10/3/uL (0.21-1.20); NEUTROPHILS 81.6 %; NEUTROPHILS ABSOLUTE 7.15 10/3/uL (2.02-8.40); PLATELET COUNT 95 10/3/uL (150-400); RBC DISTRIBUTION WIDTH 19.9 % (12.0-16.0); RED CELL COUNT 2.84 10/6/uL (4.7-6.1); WHITE BLOOD CELLS 8.8 10/3/uL (4.5-10.5)
[2016-07-04 08:21] LABS: MANUAL DIFF NO %
[2016-07-04 08:28] LABS: INTERNATIONAL NORMAL RATI 1.3 UNITS (-); PROTIME (NOT ORD) 15.7 SEC (12.0-14.5)
[2016-07-04 08:33] LABS: ALBUMIN 2.5 G/DL (3.5-5.0); BUN (BLOOD UREA NITROGEN) 28 MG/DL (6-23); CALCIUM, SERUM 8.3 MG/DL (8.5-10.4); CHLORIDE, SERUM 105 MMOL/L (96-112); CO2 (CARBON DIOXIDE) 35 MMOL/L (24-34); CREATININE 0.99 MG/DL (0.70-1.30); GFR AFRICAN AMERICAN 86 ML/MIN (>=60); GFR NON AFRICAN AMERICAN 74 ML/MIN (>=60); POTASSIUM, SERUM 4.5 MMOL/L (3.5-5.3); SODIUM, SERUM 147 MMOL/L (135-148)
[2016-07-04 08:34] LABS: GLUCOSE, SERUM 110 MG/DL (60-99); PHOSPHORUS, SERUM 3.2 MG/DL (2.5-4.5)
[2016-07-04 11:41] LABS: BASOPHILS 0.1 %; BASOPHILS ABSOLUTE 0.01 10/3/uL (0.0-0.16); EOSINOPHILS 1.4 %; EOSINOPHILS ABSOLUTE 0.12 10/3/uL (0.0-0.53); HEMATOCRIT 25.6 % (40.0-51.0); HEMOGLOBIN 7.8 g/dL (13.6-17.8); IMMATURE GRANULOCYTES 0.1 %; IMMATURE GRANULOCYTES ABSOLUTE 0.01 10/3/uL (0.0-0.11); LYMPHOCYTES ABSOLUTE 0.76 10/3/uL (0.67-4.30); MANUAL DIFF NO %; MEAN CORPUS HGB CONC 30.5 g/dL (32.0-36.0); MEAN CORPUSCULAR HEMOGLOB 28.3 pg (26.0-34.0); MEAN CORPUSCULAR VOLUME 92.8 fL (80-100); MONOCYTES ABSOLUTE 0.76 10/3/uL (0.21-1.20); NEUTROPHILS 80.4 %; PLATELET COUNT 94 10/3/uL (150-400); RBC DISTRIBUTION WIDTH 19.9 % (12.0-16.0); RED CELL COUNT 2.76 10/6/uL (4.7-6.1); WHITE BLOOD CELLS 8.5 10/3/uL (4.5-10.5)
[2016-07-04 12:03] LABS: A/G RATIO 0.6 (0.7-1.9); ALBUMIN 2.4 G/DL (3.5-5.0); BUN (BLOOD UREA NITROGEN) 29 MG/DL (6-23); CALCIUM, SERUM 8.2 MG/DL (8.5-10.4); CHLORIDE, SERUM 107 MMOL/L (96-112); CO2 (CARBON DIOXIDE) 35 MMOL/L (24-34); CREATININE 0.99 MG/DL (0.70-1.30); GFR AFRICAN AMERICAN 86 ML/MIN (>=60); GFR NON AFRICAN AMERICAN 74 ML/MIN (>=60); GLOBULIN 3.9 G/DL (2.5-4.1); PHOSPHORUS, SERUM 2.5 MG/DL (2.5-4.5); POTASSIUM, SERUM 4.4 MMOL/L (3.5-5.3); SODIUM, SERUM 148 MMOL/L (135-148); TOTAL PROTEIN 6.3 G/DL (6.0-8.5)
[2016-07-04 12:04] LABS: ALKALINE PHOSPHATASE 133 U/L (45-117); GLUCOSE, SERUM 107 MG/DL (60-99); SGOT(AST) 32 U/L (5-40); SGPT(ALT) 30 U/L (5-65); TOTAL BILIRUBIN 1.5 MG/DL (0-1.2)
[2016-07-05 00:11] LABS: OSMOLALITY, URINE 571 MOSM/KG (50-1200)
[2016-07-05 00:45] LABS: SODIUM, URINE 12 MEQ/L
[2016-07-05 02:54] LABS: BASOPHILS 0.4 %; BASOPHILS ABSOLUTE 0.02 10/3/uL (0.0-0.16); EOSINOPHILS 3.6 %; EOSINOPHILS ABSOLUTE 0.19 10/3/uL (0.0-0.53); HEMATOCRIT 23.7 % (40.0-51.0); IMMATURE GRANULOCYTES 0.2 %; IMMATURE GRANULOCYTES ABSOLUTE 0.01 10/3/uL (0.0-0.11); LYMPHOCYTES 8.4 %; LYMPHOCYTES ABSOLUTE 0.45 10/3/uL (0.67-4.30); MANUAL DIFF NO %; MEAN CORPUS HGB CONC 29.5 g/dL (32.0-36.0); MEAN CORPUSCULAR HEMOGLOB 27.8 pg (26.0-34.0); MEAN PLATELET VOLUME 10.2 fL (9.2-13.0); MONOCYTES 10.8 %; MONOCYTES ABSOLUTE 0.58 10/3/uL (0.21-1.20); NEUTROPHILS 76.6 %; PLATELET COUNT 71 10/3/uL (150-400); RBC DISTRIBUTION WIDTH 20.3 % (12.0-16.0); RED CELL COUNT 2.52 10/6/uL (4.7-6.1); WHITE BLOOD CELLS 5.4 10/3/uL (4.5-10.5)
[2016-07-05 02:56] LABS: INTERNATIONAL NORMAL RATI 1.3 UNITS (-); PROTIME (NOT ORD) 16.5 SEC (12.0-14.5)
[2016-07-05 03:09] LABS: ANISOCYTOSIS 1+ (5-10/OIF) (0-5/OIF); HYPOCHROMIA 1+ (3-10/OIF) (0-2/OIF); OVALOCYTES 1+ (3-10/OIF) (0-2/OIF); RBC MORPHOLOGY ABN (NORMAL)
[2016-07-05 03:10] LABS: ELLIPTOCYTES 1+ (3-10/OIF) (0-2/OIF); POLYCHROMASIA 1+ (2-5/OIF) (0-1/OIF); SCHISTOCYTES FEW (3-10/OIF)
[2016-07-05 03:12] LABS: A/G RATIO 0.6 (0.7-1.9); ALBUMIN 2.3 G/DL (3.5-5.0); CHLORIDE, SERUM 109 MMOL/L (96-112); CO2 (CARBON DIOXIDE) 35 MMOL/L (24-34); CREATININE 0.78 MG/DL (0.70-1.30); GFR AFRICAN AMERICAN 102 ML/MIN (>=60); GFR NON AFRICAN AMERICAN 88 ML/MIN (>=60); GLOBULIN 3.8 G/DL (2.5-4.1); POTASSIUM, SERUM 3.8 MMOL/L (3.5-5.3); PREALBUMIN 10.7 MG/DL (17.0-43.0); SODIUM, SERUM 151 MMOL/L (135-148); TOTAL BILIRUBIN 1.2 MG/DL (0-1.2); TOTAL PROTEIN 6.1 G/DL (6.0-8.5)
[2016-07-05 03:19] LABS: BUN (BLOOD UREA NITROGEN) 25 MG/DL (6-23)
[2016-07-05 03:20] LABS: ALKALINE PHOSPHATASE 115 U/L (45-117); CALCIUM, SERUM 8.1 MG/DL (8.5-10.4); GLUCOSE, SERUM 103 MG/DL (60-99); PHOSPHORUS, SERUM 1.7 MG/DL (2.5-4.5); SGOT(AST) 26 U/L (5-40); SGPT(ALT) 28 U/L (5-65)
[2016-07-05 14:05] LABS: HEMOGLOBIN 8.3 g/dL (13.6-17.8)
[2016-07-05 14:06] LABS: HEMATOCRIT 26.5 % (40.0-51.0)
[2016-07-06 03:14] LABS: BASOPHILS 0 %; EOSINOPHILS 0.2 %; EOSINOPHILS ABSOLUTE 0.01 10/3/uL (0.0-0.53); HEMATOCRIT 26.7 % (40.0-51.0); HEMOGLOBIN 8.3 g/dL (13.6-17.8); IMMATURE GRANULOCYTES 0.2 %; IMMATURE GRANULOCYTES ABSOLUTE 0.01 10/3/uL (0.0-0.11); LYMPHOCYTES 8.2 %; LYMPHOCYTES ABSOLUTE 0.41 10/3/uL (0.67-4.30); MEAN CORPUSCULAR HEMOGLOB 28.7 pg (26.0-34.0); MEAN CORPUSCULAR VOLUME 92.4 fL (80-100); MEAN PLATELET VOLUME 10.9 fL (9.2-13.0); MONOCYTES 7.2 %; MONOCYTES ABSOLUTE 0.36 10/3/uL (0.21-1.20); NEUTROPHILS 84.2 %; NEUTROPHILS ABSOLUTE 4.21 10/3/uL (2.02-8.40); PLATELET COUNT 91 10/3/uL (150-400); RBC DISTRIBUTION WIDTH 20.5 % (12.0-16.0); RED CELL COUNT 2.89 10/6/uL (4.7-6.1)
[2016-07-06 03:17] LABS: MANUAL DIFF NO %; MEAN CORPUS HGB CONC 31.1 g/dL (32.0-36.0)
[2016-07-06 03:26] LABS: BUN (BLOOD UREA NITROGEN) 25 MG/DL (6-23); CHLORIDE, SERUM 113 MMOL/L (96-112); CREATININE 0.95 MG/DL (0.70-1.30); GFR AFRICAN AMERICAN 90 ML/MIN (>=60); GFR NON AFRICAN AMERICAN 78 ML/MIN (>=60); PHOSPHORUS, SERUM 2.1 MG/DL (2.5-4.5); POTASSIUM, SERUM 4.2 MMOL/L (3.5-5.3); SODIUM, SERUM 152 MMOL/L (135-148)
[2016-07-06 03:29] LABS: CO2 (CARBON DIOXIDE) 29 MMOL/L (24-34); GLUCOSE, SERUM 126 MG/DL (60-99)
[2016-07-06 12:54] LABS: ASCORBIC ACID (UR NOT ORDER) NEG (NEG); BILIRUBIN, URINE NEGATIVE (NEG); KETONE, URINE NEGATIVE (NEG); LEUKOCYTE ESTERASE(NOT OR LARGE (NEG); WBC (NOT ORDERED) (RFLEX) 169 (0-5)
[2016-07-07 05:11] LABS: BASOPHILS 0.2 %; BASOPHILS ABSOLUTE 0.01 10/3/uL (0.0-0.16); EOSINOPHILS 0.2 %; EOSINOPHILS ABSOLUTE 0.01 10/3/uL (0.0-0.53); HEMATOCRIT 29.5 % (40.0-51.0); IMMATURE GRANULOCYTES 0.2 %; IMMATURE GRANULOCYTES ABSOLUTE 0.01 10/3/uL (0.0-0.11); MANUAL DIFF NO %; MEAN CORPUS HGB CONC 30.5 g/dL (32.0-36.0); MEAN CORPUSCULAR HEMOGLOB 28.7 pg (26.0-34.0); MEAN CORPUSCULAR VOLUME 93.9 fL (80-100); MEAN PLATELET VOLUME 10.7 fL (9.2-13.0); MONOCYTES 2.2 %; MONOCYTES ABSOLUTE 0.11 10/3/uL (0.21-1.20); NEUTROPHILS 95.2 %; NEUTROPHILS ABSOLUTE 4.69 10/3/uL (2.02-8.40); PLATELET COUNT 91 10/3/uL (150-400); RBC DISTRIBUTION WIDTH 20.6 % (12.0-16.0); RED CELL COUNT 3.14 10/6/uL (4.7-6.1); WHITE BLOOD CELLS 4.9 10/3/uL (4.5-10.5)
[2016-07-07 05:30] LABS: ALBUMIN 2.3 G/DL (3.5-5.0); BUN (BLOOD UREA NITROGEN) 23 MG/DL (6-23); CALCIUM, SERUM 8.1 MG/DL (8.5-10.4); CHLORIDE, SERUM 110 MMOL/L (96-112); CO2 (CARBON DIOXIDE) 31 MMOL/L (24-34); CREATININE 0.91 MG/DL (0.70-1.30); GFR AFRICAN AMERICAN 95 ML/MIN (>=60); GFR NON AFRICAN AMERICAN 82 ML/MIN (>=60); PHOSPHORUS, SERUM 2.4 MG/DL (2.5-4.5); POTASSIUM, SERUM 4.3 MMOL/L (3.5-5.3); SODIUM, SERUM 150 MMOL/L (135-148)
[2016-07-07 05:32] LABS: GLUCOSE, SERUM 148 MG/DL (60-99)
[2016-07-08 04:09] LABS: BASOPHILS 0.2 %; BASOPHILS ABSOLUTE 0.01 10/3/uL (0.0-0.16); EOSINOPHILS 1.1 %; EOSINOPHILS ABSOLUTE 0.07 10/3/uL (0.0-0.53); HEMATOCRIT 29.5 % (40.0-51.0); HEMOGLOBIN 8.9 g/dL (13.6-17.8); IMMATURE GRANULOCYTES 0.2 %; IMMATURE GRANULOCYTES ABSOLUTE 0.01 10/3/uL (0.0-0.11); LYMPHOCYTES 6.5 %; LYMPHOCYTES ABSOLUTE 0.42 10/3/uL (0.67-4.30); MEAN CORPUS HGB CONC 30.2 g/dL (32.0-36.0); MEAN CORPUSCULAR HEMOGLOB 28.4 pg (26.0-34.0); MEAN CORPUSCULAR VOLUME 94.2 fL (80-100); MEAN PLATELET VOLUME 10.2 fL (9.2-13.0); MONOCYTES 6.3 %; MONOCYTES ABSOLUTE 0.41 10/3/uL (0.21-1.20); NEUTROPHILS 85.7 %; NEUTROPHILS ABSOLUTE 5.57 10/3/uL (2.02-8.40); PLATELET COUNT 101 10/3/uL (150-400); RBC DISTRIBUTION WIDTH 20.9 % (12.0-16.0); RED CELL COUNT 3.13 10/6/uL (4.7-6.1); WHITE BLOOD CELLS 6.5 10/3/uL (4.5-10.5)
[2016-07-08 04:14] LABS: MANUAL DIFF NO %
[2016-07-08 04:31] LABS: A/G RATIO 0.6 (0.7-1.9); ALBUMIN 2.4 G/DL (3.5-5.0); BUN (BLOOD UREA NITROGEN) 22 MG/DL (6-23); CHLORIDE, SERUM 110 MMOL/L (96-112); CO2 (CARBON DIOXIDE) 33 MMOL/L (24-34); CREATININE 0.96 MG/DL (0.70-1.30); GFR AFRICAN AMERICAN 89 ML/MIN (>=60); GFR NON AFRICAN AMERICAN 77 ML/MIN (>=60); POTASSIUM, SERUM 3.5 MMOL/L (3.5-5.3); SODIUM, SERUM 150 MMOL/L (135-148); TOTAL BILIRUBIN 1.2 MG/DL (0-1.2); TOTAL PROTEIN 6.4 G/DL (6.0-8.5)
[2016-07-08 04:37] LABS: ALKALINE PHOSPHATASE 132 U/L (45-117); CALCIUM, SERUM 8.4 MG/DL (8.5-10.4); GLUCOSE, SERUM 104 MG/DL (60-99); PHOSPHORUS, SERUM 2.3 MG/DL (2.5-4.5); SGOT(AST) 25 U/L (5-40); SGPT(ALT) 32 U/L (5-65)
[2016-07-09 05:19] LABS: BASOPHILS 0.2 %; BASOPHILS ABSOLUTE 0.01 10/3/uL (0.0-0.16); EOSINOPHILS ABSOLUTE 0.11 10/3/uL (0.0-0.53); HEMATOCRIT 28.6 % (40.0-51.0); HEMOGLOBIN 8.9 g/dL (13.6-17.8); IMMATURE GRANULOCYTES 0.2 %; IMMATURE GRANULOCYTES ABSOLUTE 0.01 10/3/uL (0.0-0.11); LYMPHOCYTES 9.2 %; MEAN CORPUS HGB CONC 31.1 g/dL (32.0-36.0); MEAN CORPUSCULAR HEMOGLOB 29.2 pg (26.0-34.0); MEAN CORPUSCULAR VOLUME 93.8 fL (80-100); MEAN PLATELET VOLUME 10.2 fL (9.2-13.0); MONOCYTES 6.7 %; MONOCYTES ABSOLUTE 0.36 10/3/uL (0.21-1.20); NEUTROPHILS 81.7 %; NEUTROPHILS ABSOLUTE 4.42 10/3/uL (2.02-8.40); PLATELET COUNT 117 10/3/uL (150-400); RBC DISTRIBUTION WIDTH 21.1 % (12.0-16.0); RED CELL COUNT 3.05 10/6/uL (4.7-6.1); WHITE BLOOD CELLS 5.4 10/3/uL (4.5-10.5)
[2016-07-09 05:21] LABS: MANUAL DIFF NO %
[2016-07-09 05:35] LABS: BUN (BLOOD UREA NITROGEN) 17 MG/DL (6-23); CHLORIDE, SERUM 110 MMOL/L (96-112); CO2 (CARBON DIOXIDE) 31 MMOL/L (24-34); CREATININE 0.87 MG/DL (0.70-1.30); GFR AFRICAN AMERICAN 98 ML/MIN (>=60); GFR NON AFRICAN AMERICAN 84 ML/MIN (>=60); GLUCOSE, SERUM 118 MG/DL (60-99); POTASSIUM, SERUM 3.2 MMOL/L (3.5-5.3); SODIUM, SERUM 150 MMOL/L (135-148)
[2016-07-10 10:01] LABS: BUN (BLOOD UREA NITROGEN) 15 MG/DL (6-23); CALCIUM, SERUM 8.3 MG/DL (8.5-10.4); CHLORIDE, SERUM 108 MMOL/L (96-112); CO2 (CARBON DIOXIDE) 33 MMOL/L (24-34); CREATININE 0.86 MG/DL (0.70-1.30); GFR AFRICAN AMERICAN 98 ML/MIN (>=60); GFR NON AFRICAN AMERICAN 85 ML/MIN (>=60); GLUCOSE, SERUM 108 MG/DL (60-99); POTASSIUM, SERUM 3.3 MMOL/L (3.5-5.3); SODIUM, SERUM 149 MMOL/L (135-148)
[2016-07-12 06:13] LABS: A/G RATIO 0.6 (0.7-1.9); ALBUMIN 2.3 G/DL (3.5-5.0); BUN (BLOOD UREA NITROGEN) 15 MG/DL (6-23); CALCIUM, SERUM 8.5 MG/DL (8.5-10.4); CHLORIDE, SERUM 108 MMOL/L (96-112); CO2 (CARBON DIOXIDE) 29 MMOL/L (24-34); GFR AFRICAN AMERICAN 101 ML/MIN (>=60); GFR NON AFRICAN AMERICAN 87 ML/MIN (>=60); GLOBULIN 3.9 G/DL (2.5-4.1); PHOSPHORUS, SERUM 1.9 MG/DL (2.5-4.5); POTASSIUM, SERUM 4.1 MMOL/L (3.5-5.3); PREALBUMIN 11.3 MG/DL (17.0-43.0); SODIUM, SERUM 146 MMOL/L (135-148); TOTAL PROTEIN 6.2 G/DL (6.0-8.5)
[2016-07-12 06:14] LABS: ALKALINE PHOSPHATASE 112 U/L (45-117); GLUCOSE, SERUM 96 MG/DL (60-99); SGOT(AST) 22 U/L (5-40); SGPT(ALT) 21 U/L (5-65); TOTAL BILIRUBIN 1.9 MG/DL (0-1.2)
[2016-07-17 09:22] LABS: BASOPHILS 0.2 %; BASOPHILS ABSOLUTE 0.01 10/3/uL (0.0-0.16); EOSINOPHILS 2.8 %; EOSINOPHILS ABSOLUTE 0.13 10/3/uL (0.0-0.53); HEMOGLOBIN 10.5 g/dL (13.6-17.8); IMMATURE GRANULOCYTES 0.2 %; IMMATURE GRANULOCYTES ABSOLUTE 0.01 10/3/uL (0.0-0.11); LYMPHOCYTES 15.8 %; LYMPHOCYTES ABSOLUTE 0.74 10/3/uL (0.67-4.30); MEAN CORPUS HGB CONC 30.8 g/dL (32.0-36.0); MEAN CORPUSCULAR HEMOGLOB 28.8 pg (26.0-34.0); MEAN CORPUSCULAR VOLUME 93.4 fL (80-100); MONOCYTES 10.5 %; MONOCYTES ABSOLUTE 0.49 10/3/uL (0.21-1.20); NEUTROPHILS 70.5 %; RBC DISTRIBUTION WIDTH 20.4 % (12.0-16.0); RED CELL COUNT 3.65 10/6/uL (4.7-6.1); WHITE BLOOD CELLS 4.7 10/3/uL (4.5-10.5)
[2016-07-17 09:30] LABS: HEMATOCRIT 34.1 % (40.0-51.0); PLATELET COUNT 257 10/3/uL (150-400)
[2016-07-17 09:31] LABS: MANUAL DIFF NO %
[2016-07-17 09:35] LABS: BUN (BLOOD UREA NITROGEN) 13 MG/DL (6-23); CALCIUM, SERUM 8.7 MG/DL (8.5-10.4); CHLORIDE, SERUM 107 MMOL/L (96-112); CO2 (CARBON DIOXIDE) 31 MMOL/L (24-34); CREATININE 0.82 MG/DL (0.70-1.30); GFR AFRICAN AMERICAN 100 ML/MIN (>=60); GFR NON AFRICAN AMERICAN 87 ML/MIN (>=60); POTASSIUM, SERUM 3.9 MMOL/L (3.5-5.3); SODIUM, SERUM 147 MMOL/L (135-148)
[2016-07-17 09:37] LABS: GLUCOSE, SERUM 89 MG/DL (60-99)
[2016-07-19 06:23] LABS: A/G RATIO 0.6 (0.7-1.9); ALBUMIN 2.4 G/DL (3.5-5.0); BUN (BLOOD UREA NITROGEN) 11 MG/DL (6-23); CHLORIDE, SERUM 110 MMOL/L (96-112); CO2 (CARBON DIOXIDE) 30 MMOL/L (24-34); CREATININE 0.69 MG/DL (0.70-1.30); GFR AFRICAN AMERICAN 108 ML/MIN (>=60); GFR NON AFRICAN AMERICAN 93 ML/MIN (>=60); GLOBULIN 4.1 G/DL (2.5-4.1); POTASSIUM, SERUM 3.5 MMOL/L (3.5-5.3); PREALBUMIN 11.6 MG/DL (17.0-43.0); SODIUM, SERUM 148 MMOL/L (135-148); TOTAL PROTEIN 6.5 G/DL (6.0-8.5)
[2016-07-19 06:24] LABS: GLUCOSE, SERUM 86 MG/DL (60-99)
[2016-07-19 06:25] LABS: ALKALINE PHOSPHATASE 107 U/L (45-117); CALCIUM, SERUM 8.6 MG/DL (8.5-10.4); PHOSPHORUS, SERUM 2.4 MG/DL (2.5-4.5); SGOT(AST) 21 U/L (5-40); SGPT(ALT) 17 U/L (5-65); TOTAL BILIRUBIN 0.9 MG/DL (0-1.2)
[2016-07-20 05:39] LABS: BASOPHILS 0.1 %; BASOPHILS ABSOLUTE 0.01 10/3/uL (0.0-0.16); EOSINOPHILS 0.1 %; EOSINOPHILS ABSOLUTE 0.01 10/3/uL (0.0-0.53); HEMATOCRIT 35.8 % (40.0-51.0); HEMOGLOBIN 11.1 g/dL (13.6-17.8); IMMATURE GRANULOCYTES 0.1 %; IMMATURE GRANULOCYTES ABSOLUTE 0.01 10/3/uL (0.0-0.11); LYMPHOCYTES 6.8 %; LYMPHOCYTES ABSOLUTE 0.53 10/3/uL (0.67-4.30); MEAN CORPUSCULAR HEMOGLOB 28.8 pg (26.0-34.0); MEAN PLATELET VOLUME 9.2 fL (9.2-13.0); MONOCYTES 8.2 %; MONOCYTES ABSOLUTE 0.64 10/3/uL (0.21-1.20); NEUTROPHILS 84.7 %; NEUTROPHILS ABSOLUTE 6.62 10/3/uL (2.02-8.40); PLATELET COUNT 231 10/3/uL (150-400); RBC DISTRIBUTION WIDTH 19.6 % (12.0-16.0); RED CELL COUNT 3.85 10/6/uL (4.7-6.1)
[2016-07-20 05:41] LABS: MANUAL DIFF NO %; WHITE BLOOD CELLS 7.8 10/3/uL (4.5-10.5)
[2016-07-20 05:47] LABS: BUN (BLOOD UREA NITROGEN) 13 MG/DL (6-23); CALCIUM, SERUM 8.8 MG/DL (8.5-10.4); CHLORIDE, SERUM 108 MMOL/L (96-112); CO2 (CARBON DIOXIDE) 30 MMOL/L (24-34); CREATININE 0.89 MG/DL (0.70-1.30); GFR AFRICAN AMERICAN 97 ML/MIN (>=60); GFR NON AFRICAN AMERICAN 84 ML/MIN (>=60); GLUCOSE, SERUM 113 MG/DL (60-99); POTASSIUM, SERUM 4.3 MMOL/L (3.5-5.3); SODIUM, SERUM 146 MMOL/L (135-148)
[2016-07-26 07:57] LABS: A/G RATIO 0.5 (0.7-1.9); ALBUMIN 2.3 G/DL (3.5-5.0); ALKALINE PHOSPHATASE 105 U/L (45-117); BUN (BLOOD UREA NITROGEN) 13 MG/DL (6-23); CALCIUM, SERUM 8.5 MG/DL (8.5-10.4); CHLORIDE, SERUM 106 MMOL/L (96-112); CO2 (CARBON DIOXIDE) 33 MMOL/L (24-34); CREATININE 0.51 MG/DL (0.70-1.30); GFR AFRICAN AMERICAN 122 ML/MIN (>=60); GFR NON AFRICAN AMERICAN 105 ML/MIN (>=60); GLOBULIN 4.3 G/DL (2.5-4.1); GLUCOSE, SERUM 103 MG/DL (60-99); PHOSPHORUS, SERUM 2.1 MG/DL (2.5-4.5); POTASSIUM, SERUM 4.3 MMOL/L (3.5-5.3); PREALBUMIN 11.9 MG/DL (17.0-43.0); SODIUM, SERUM 144 MMOL/L (135-148); TOTAL BILIRUBIN 0.8 MG/DL (0-1.2); TOTAL PROTEIN 6.6 G/DL (6.0-8.5)
[2016-07-26 07:58] LABS: SGOT(AST) 24 U/L (5-40); SGPT(ALT) 18 U/L (5-65)
[2016-10-08] MEDS ORDERED: PRILO PEG (15:09)
[2016-12-10] MEDS ORDERED: PROTONIX PEG (15:45)
[2016-12-10] MEDS ORDERED: LOP25 PEG (15:45)
[2016-12-10] MEDS ORDERED: KEPPRA500 PEG (15:45)
[2016-12-10] MEDS ORDERED: SUCR PEG (15:46)
[2016-12-10] MEDS ORDERED: AMICAR1000 MG PEG (15:46)
[2016-12-10] MEDS ORDERED: XIFAXAN550 MG PEG (15:46)
[2016-12-10] MEDS ORDERED: VITAMIN D31000 UNIT PEG (15:47)
[2016-12-10] MEDS ORDERED: KCL20UDL PEG (15:47)
[2016-12-10] MEDS ORDERED: DUONEB INH (15:48)
[2016-12-10] MEDS ORDERED: KRISTALOSE20 GM PEG (15:48)
[2016-12-10] MEDS ORDERED: TAMOXIFEN20 M1 PEG (15:48)
== END 2016-07-30 15:45 | DRG 3 ==
LOC: SDC 05:25 → MIC 10:49 → IMCU 06-28 17:35 → CCU 07-04 00:20 → IMCU 07-08 22:42 → 5SO 07-23 18:12
PROVIDERS: Internal Medicine; Internal Medicine Critical Care Medicine; Internal Medicine Pulmonary Disease; Nurse Practitioner Family; Otolaryngology; Surgery
DX: C32.9 Malignant neoplasm of larynx, unspecified (principal); G93.49 Other encephalopathy; N17.9 Acute kidney failure, unspecified; J95.821 Acute postprocedural respiratory failure; I48.2 Chronic atrial fibrillation; R00.1 Bradycardia, unspecified; K31.84 Gastroparesis; T81.19XA Other postprocedural shock, initial encounter; E87.0 Hyperosmolality and hypernatremia; E27.40 Unspecified adrenocortical insufficiency; I97.89 Other postprocedural complications and disorders of the circulatory system, not elsewhere classified; J98.11 Atelectasis; N39.0 Urinary tract infection, site not specified; J38.6 Stenosis of larynx; R56.9 Unspecified convulsions; I78.0 Hereditary hemorrhagic telangiectasia; R04.0 Epistaxis; Z88.0 Allergy status to penicillin; Z79.899 Other long term (current) drug therapy; Z88.8 Allergy status to other drugs, medicaments and biological substances; I95.81 Postprocedural hypotension; Q27.39 Arteriovenous malformation, other site
CPT/HCPCS: 36415; 36569; 36600; 70450; 70543; 71010; 74000; 76870; 77334; 78815; 80048; 80053; 80069; 80076; 81001; 82140; 82533; 82550; 82553; 82728; 82805; 82962; 83540; 83550; 83735; 83935; 84100; 84132; 84134; 84300; 84436; 84443; 84481; 84484; 85014; 85018; 85025; 85610; 85730; 86850; 86900; 86901; 86920; 87077; 87086; 87186; 87641; 88307; 88331; 93005; 93306; 94002; 94003; 94640; 94770; 97110-GO; 97110-GP; 97116-GP; 97162-GP; 97164-GP; 97166-GO; 97530-GP; A9270-GY; A9552; A9577; C1751; C9113; G8978-CJ-GP; G8978-CL-GP; G8978-CM-GP; G8979-CH-GP; G8979-CK-GP; J0330; J0690; J1720; J1750; J1953; J1956; J2250; J2270; J2370; J2405; J2710; J2765; J2920; J3010; P9016; P9047

== ENCOUNTER 2016-07-31 09:24 | Emergency (ER) | payer OTHER, MEDICARE ==
[2016-10-08] MEDS ORDERED: PRILO PEG (15:09)
[2016-12-10] MEDS ORDERED: LOP25 PEG (15:45)
[2016-12-10] MEDS ORDERED: PROTONIX PEG (15:45)
[2016-12-10] MEDS ORDERED: KEPPRA500 PEG (15:45)
[2016-12-10] MEDS ORDERED: SUCR PEG (15:46)
[2016-12-10] MEDS ORDERED: AMICAR1000 MG PEG (15:46)
[2016-12-10] MEDS ORDERED: XIFAXAN550 MG PEG (15:46)
[2016-12-10] MEDS ORDERED: VITAMIN D31000 UNIT PEG (15:47)
[2016-12-10] MEDS ORDERED: KCL20UDL PEG (15:47)
[2016-12-10] MEDS ORDERED: TAMOXIFEN20 M1 PEG (15:48)
[2016-12-10] MEDS ORDERED: KRISTALOSE20 GM PEG (15:48)
[2016-12-10] MEDS ORDERED: DUONEB INH (15:48)
== END 2016-07-31 10:30 | disposition home or self-care (01) ==
LOC: ER 09:24
DX: K94.23 Gastrostomy malfunction (principal); I10 Essential (primary) hypertension; I48.91 Unspecified atrial fibrillation; Z85.21 Personal history of malignant neoplasm of larynx; Z88.0 Allergy status to penicillin; Z79.899 Other long term (current) drug therapy
CPT/HCPCS: 99283

== ENCOUNTER 2016-09-08 22:05 | Emergency (ER) | payer MEDICARE, OTHER ==
[2016-10-08] MEDS ORDERED: PRILO PEG (15:09)
[2016-12-10] MEDS ORDERED: PROTONIX PEG (15:45)
[2016-12-10] MEDS ORDERED: LOP25 PEG (15:45)
[2016-12-10] MEDS ORDERED: KEPPRA500 PEG (15:45)
[2016-12-10] MEDS ORDERED: SUCR PEG (15:46)
[2016-12-10] MEDS ORDERED: AMICAR1000 MG PEG (15:46)
[2016-12-10] MEDS ORDERED: XIFAXAN550 MG PEG (15:46)
[2016-12-10] MEDS ORDERED: KCL20UDL PEG (15:47)
[2016-12-10] MEDS ORDERED: VITAMIN D31000 UNIT PEG (15:47)
[2016-12-10] MEDS ORDERED: TAMOXIFEN20 M1 PEG (15:48)
[2016-12-10] MEDS ORDERED: DUONEB INH (15:48)
[2016-12-10] MEDS ORDERED: KRISTALOSE20 GM PEG (15:48)
== END 2016-09-08 22:30 | disposition home or self-care (01) ==
LOC: ER 22:05
DX: S42.214A Unspecified nondisplaced fracture of surgical neck of right humerus, initial encounter for closed fracture (principal); Z88.0 Allergy status to penicillin; Z88.8 Allergy status to other drugs, medicaments and biological substances; Z79.899 Other long term (current) drug therapy; W01.0XXA Fall on same level from slipping, tripping and stumbling without subsequent striking against object, initial encounter
CPT/HCPCS: 71010; 73030-RT; 99284

== ENCOUNTER 2016-09-13 23:51 | Emergency (ER) | payer MEDICARE, OTHER ==
[2016-09-13 23:53] LABS: BASOPHILS 0.3 %; BASOPHILS ABSOLUTE 0.03 10/3/uL (0.0-0.16); EOSINOPHILS ABSOLUTE 0.17 10/3/uL (0.0-0.53); HEMATOCRIT 27.7 % (40.0-51.0); HEMOGLOBIN 8.5 g/dL (13.6-17.8); IMMATURE GRANULOCYTES 0.1 %; IMMATURE GRANULOCYTES ABSOLUTE 0.01 10/3/uL (0.0-0.11); LYMPHOCYTES 7.9 %; LYMPHOCYTES ABSOLUTE 0.69 10/3/uL (0.67-4.30); MEAN CORPUS HGB CONC 30.7 g/dL (32.0-36.0); MEAN CORPUSCULAR HEMOGLOB 27.9 pg (26.0-34.0); MEAN CORPUSCULAR VOLUME 90.8 fL (80-100); MONOCYTES 9.8 %; MONOCYTES ABSOLUTE 0.85 10/3/uL (0.21-1.20); NEUTROPHILS 79.9 %; NEUTROPHILS ABSOLUTE 6.96 10/3/uL (2.02-8.40); PLATELET COUNT 244 10/3/uL (150-400); RBC DISTRIBUTION WIDTH 18.2 % (12.0-16.0); RED CELL COUNT 3.05 10/6/uL (4.7-6.1)
[2016-09-13 23:55] LABS: ER CBC TAT 0 Hrs 09 MinsNP; MANUAL DIFF NO %; WHITE BLOOD CELLS 8.7 10/3/uL (4.5-10.5)
[2016-09-14] LABS: INTERNATIONAL NORMAL RATI 1.2 UNITS (-); PARTIAL THROMBO TIME 29.2 SEC (22.5-37.2); PROTIME (NOT ORD) 15.2 SEC (12.0-14.5)
[2016-09-14 00:09] LABS: ALBUMIN 2.8 G/DL (3.5-5.0); CALCIUM, SERUM 8.1 MG/DL (8.5-10.4); CHLORIDE, SERUM 97 MMOL/L (96-112); CO2 (CARBON DIOXIDE) 34 MMOL/L (24-34); CREATININE 0.95 MG/DL (0.70-1.30); GFR AFRICAN AMERICAN 90 ML/MIN (>=60); GFR NON AFRICAN AMERICAN 78 ML/MIN (>=60); POTASSIUM, SERUM 3.9 MMOL/L (3.5-5.3); SODIUM, SERUM 139 MMOL/L (135-148); TOTAL BILIRUBIN 1.1 MG/DL (0-1.2); TOTAL PROTEIN 7.4 G/DL (6.0-8.5)
[2016-09-14 00:10] LABS: A/G RATIO 0.6 (0.7-1.9); ALKALINE PHOSPHATASE 123 U/L (45-117); BUN (BLOOD UREA NITROGEN) 29 MG/DL (6-23); GLOBULIN 4.6 G/DL (2.5-4.1); GLUCOSE, SERUM 92 MG/DL (60-99)
[2016-09-14 00:11] LABS: SGOT(AST) 22 U/L (5-40); SGPT(ALT) 25 U/L (5-65)
[2016-10-08] MEDS ORDERED: PRILO PEG (15:09)
[2016-12-10] MEDS ORDERED: KEPPRA500 PEG (15:45)
[2016-12-10] MEDS ORDERED: LOP25 PEG (15:45)
[2016-12-10] MEDS ORDERED: PROTONIX PEG (15:45)
[2016-12-10] MEDS ORDERED: AMICAR1000 MG PEG (15:46)
[2016-12-10] MEDS ORDERED: XIFAXAN550 MG PEG (15:46)
[2016-12-10] MEDS ORDERED: SUCR PEG (15:46)
[2016-12-10] MEDS ORDERED: VITAMIN D31000 UNIT PEG (15:47)
[2016-12-10] MEDS ORDERED: KCL20UDL PEG (15:47)
[2016-12-10] MEDS ORDERED: TAMOXIFEN20 M1 PEG (15:48)
[2016-12-10] MEDS ORDERED: KRISTALOSE20 GM PEG (15:48)
[2016-12-10] MEDS ORDERED: DUONEB INH (15:48)
== END 2016-09-14 01:25 | disposition home or self-care (01) ==
LOC: ER 23:51
PROVIDERS: Specialist
DX: D64.9 Anemia, unspecified (principal); I48.2 Chronic atrial fibrillation; Z87.891 Personal history of nicotine dependence; I10 Essential (primary) hypertension; Z85.21 Personal history of malignant neoplasm of larynx; Z86.73 Personal history of transient ischemic attack (TIA), and cerebral infarction without residual deficits; Z88.0 Allergy status to penicillin; Z88.8 Allergy status to other drugs, medicaments and biological substances; Z79.899 Other long term (current) drug therapy
CPT/HCPCS: 31720; 71010; 80053; 85025; 85610; 85730; 87040; 87070; 87205; 93005; 94640; 99285; A9270-GY

== ENCOUNTER 2016-10-15 21:59 | Observation (INO) | payer MEDICARE, OTHER ==
--- NOTE | ~2016-10-15 | HP ---
History And Physical [id number] [place]. [address] NAME: CINDY QUEVEDO : 42 STATUS : ADM IN [facility]#: [id number] AGE: 76 ADM/REG DATE : 10/16/16 MR#: [id number] REPORT SERV DATE: 10/16/16 DICTATED BY: RONALDO LIVINGSTON DATE: 10/16/16 REPORT STATUS : Draft TRANSCRIBED BY: MODL DATE: 10/16/16 DATE OF ADMISSION: 10/15/2016 CHIEF COMPLAINT: A 76-year-old male with laryngeal cancer and tracheostomy, now presenting with hemoptysis and a possible cardiac arrest. HISTORY OF PRESENT ILLNESS: The patient's history was obtained through careful interview with the patient, , and son, coupled with review of [facility] medical records. The patient was diagnosed with vocal cord cancer of the larynx, squamous cell carcinoma type in 06/2016. He has undergone radiation surgery and is followed by Dr. Navarro and Dr. Matthew Adair. He sometimes has had difficulty with coughing up blood related to his tracheostomy. 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 He completed radiation for his laryngeal cancer about three weeks ago and has intermittent light coughing up of blood, but by 10/14/2016, began to develop an increasing hacking cough according to the family. On the evening leading up to admission, the son found the patient choking. He had fallen and then became unresponsive. According to the family, he had stopped breathing. The son checked for a pulse and there was none, so therefore he initiated CPR. He believes he got through about eight compressions of the chest when the patient suddenly coughed up a very large blood clot and was completely arousable. He was a bit confused and terry by the events, but otherwise feeling relatively well. When the son checked his pulse after the brief CPR, he states that his heart was racing. His breathing was back to baseline after this blood clot had been coughed up. One of the issues that may be contributing to the patient's dramatic presentation is that the suction mechanism at the home had become nonfunctioning. The patient has had some slight increase of chronic shortness of breath recently. No fevers or chills. No nausea or vomiting. No chest pain. REVIEW OF SYSTEMS: Otherwise, a 14-point review of systems was obtained was negative. PAST MEDICAL HISTORY: 1. Squamous cell carcinoma of the larynx, 06/2016, with a positive lymph node on PET scan. Status post radiation surgery followed by Dr. Matthew Adair and Dr. Navarro. 2. Hereditary hemorrhagic telangiectasia/Kpnxd-Eohgb-Fnabg. 3. GI bleed with arterial venous malformations. History And Physical [address] [address] NAME: CINDY QUEVEDO : 42 STATUS : ADM IN PAT#: [id number] AGE: 76 ADM/REG DATE : 10/16/16 MR#: [id number] REPORT SERV DATE: 10/16/16 DICTATED BY: RONALDO LIVINGSTON DATE: 10/16/16 REPORT STATUS : Draft TRANSCRIBED BY: NETTIE DATE: 10/16/16 4. Atrial fibrillation, followed by Dr. Donaldson, will never be an anticoagulation candidate because of his bleeding condition. 5. Seizure disorder. 6. Gastroesophageal reflux disorder. 7. Cirrhosis. 8. Hepatic encephalopathy. 9. Obstructive sleep apnea. 10.Cor pulmonale. 11.Hypertension. 12.Urinary tract infection. 13.Left hydrocele. 14.Shoulder fracture about a month ago on the right side. 15.Anemia with most recent transfusion of blood just on 10/13/2016. PAST SURGICAL HISTORY: 1. Tracheostomy. 2. PEG tube placement. 3. An apparent "LARIAT" procedure as the family spells at [place]. This is a cardiac procedure to reduce blood clot risk ?.. ALLERGIES: PENICILLIN AND ALL BLOOD THINNERS. SOCIAL HISTORY: No tobacco abuse. No alcohol abuse. He is . He has children. 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 FAMILY HISTORY: Other family members with Pksfh-Fscfs-Hafck syndrome/hereditary hemorrhagic telangiectasia. CURRENT MEDICATIONS: Include DuoNeb nebulizers; aminocaproic acid 1000 mg three times a day; Bumex 1 mg in the afternoon, 2 mg in the morning; lactulose 30 mL twice a day, Keppra 500 mg twice a day; Lopressor 12.5 mg every eight hours; potassium 20 mEq daily; rifaximin 550 mg twice a day; tamoxifen 20 mg daily; and some kind of reflux medication. PHYSICAL EXAMINATION: VITAL SIGNS: Temperature 98.6, pulse 98, blood pressure 102/58, respiratory rate 13, O2 saturation 100% on room air. GENERAL: Chronically ill-appearing male, but he is in no evidence of acute distress. HEENT: Pupils are equal, round, and reactive to light. No conjunctival pallor. No scleral icterus. Nares are patent. Oropharynx is clear of obstruction. Moist mucous membranes. NECK: Trachea midline. No thyromegaly. LYMPH: No cervical lymphadenopathy. No supraclavicular lymphadenopathy. Tracheostomy is in good condition without any complications or active bleeding around the site itself. RESPIRATORY: Clear to auscultation at bases by my exam. I do not appreciate any wheezes, rales, or rhonchi. Normal respiratory effort. CARDIOVASCULAR: Regular rate and rhythm. No murmurs, rubs, or gallops. No extremity edema is appreciated. History And Physical [address] [address] NAME: CINDY QUEVEDO : 42 STATUS : ADM IN [facility]#: [id number] AGE: 76 ADM/REG DATE : 10/16/16 MR#: [id number] REPORT SERV DATE: 10/16/16 DICTATED BY: RONALDO LIVINGSTON DATE: 10/16/16 REPORT STATUS : Draft TRANSCRIBED BY: NETTIE DATE: 10/16/16 ABDOMEN: Soft, nontender, nondistended. Normal bowel sounds auscultated throughout. No hepatosplenomegaly. DERMATOLOGICAL: The patient has obvious telangiectasias over most of his body, none of them seem to be actively bleeding or complicated by a superficial exam. Otherwise, warm and dry extremities. No pallor. No cyanosis. PSYCHIATRIC: Normal affect. Good mood. Alert and oriented x3. LABORATORY DATA: White blood cell count 8.2, hemoglobin 9.4, hematocrit 32, platelets 211. Sodium 143, potassium 4.2, chloride 103, bicarb 36, BUN 29, creatinine 1.03, glucose 84. AST 38, ALT 26, alkaline phosphatase 125. Total bilirubin 1.7. Lactic acid 1.4. INR 1.3. Troponin 0.03. An ABG demonstrates pH 7.44, a PaCO2 of 42, a PaO2 of 187, and a bicarb of 28 on oxygen. STUDIES: 1. Chest x-ray by my own evaluation shows chronic interstitial lung disease, mild, but stable compared to 09/2016 with no acute infiltrates that I can identify. 2. EKG by my own evaluation shows slightly rapid atrial fibrillation at a rate of 114. ASSESSMENT AND PLAN: 1. Hemoptysis. The patient apparently strangled on a blood clot tonight. Consult Dr. Adair, Ear, Nose, and Throat physician. Question whether related to laryngeal cancer or tracheostomy. We will treat underlying bronchitis for now. 2. Laryngeal cancer. Consult Dr. Navarro, oncologist. 3. Possible cardiac arrest, possibly induced by strangling on a blood clot. Consult the patient's senior librarian, Dr. Donaldson. Check telemetry. 4. Lfmpx-Rgppj-Ewmyn syndrome, which is a hereditary hemorrhagic telangiectasia with history of complicated bleeds in the past. 5. Cirrhosis. 6. Atrial fibrillation, but not a candidate for blood thinner secondary to bleeding risk. 7. Tracheostomy. 8. PEG tube placement. KPL/MODL Ronaldo Livingston M.D. / [id number] CC: MD Mello Centeno M.D. Jack Greer, M.D.
--- NOTE | ~2016-10-15 | CN ---
Consultation Report [facility] [address] [place]. [address] NAME: CINDY QUEVEDO : 42 STATUS : ADM Yris PAT#: [id number] AGE: 76 ADM/REG DATE : 10/15/16 MR#: [id number] REPORT SERV DATE: 10/16/16 DICTATED BY: PETRA GUADALUPE DATE: 10/16/16 REPORT STATUS : Draft TRANSCRIBED BY: MODL DATE: 10/16/16 CONSULTATION DATE OF CONSULTATION: 10/16/2016 SERVICE: Otolaryngology. REFERRING DIAGNOSIS: Hemoptysis or bleeding from the tracheostomy. HISTORY OF PRESENT ILLNESS: This is a 76-year-old white male, patient of Dr. Adair with multiple medical problems including hereditary hemorrhagic telangiectasias and laryngeal cancer. He is status post radiation therapy for his extensive laryngeal cancer. He is status post trach. Per his , yesterday at home, the patient had some obstruction of his tracheostomy tube. She went to call for help and he passed out. His son came over and did some chest compressions, which the mother says revived him. His trach was also cleared of a pinky sized dark red blood clot. The patient was then transported to [facility], where he was admitted and is currently undergoing respiratory therapy for his tracheostomy. Per his , he has had no episodes of nasal bleeding. He did not cough any blood out of his mouth. There was not any blood in his throat. She states that earlier in the week during routine flushing of his G-tube, there was some blood present in the G-tube. The patient also passed dark stools for several days afterwards. He was also recently given a unit of packed red blood cells. PAST MEDICAL HISTORY: Atrial fibrillation, HHT, cirrhosis, cor pulmonale, obstructive sleep apnea syndrome, hypertension, laryngeal cancer. PAST SURGICAL HISTORY: He has had multiple interventions for GI bleeds, has had a tracheostomy and laryngeal biopsy. ALLERGIES: HE IS ALLERGIC TO PENICILLIN. SOCIAL HISTORY: He does not smoke, do drugs, or alcohol. He lives at home with his family. PHYSICAL EXAMINATION: He is awake, alert, in no acute distress. He is able to respond appropriately. His is at the bedside and was the historian. Using the fiberoptic scope, I evaluated the tracheostomy for granulation tissue at the tip. I was able to see all the way down to the zach. I saw no evidence of granulation or recently bleeding areas, then scoped from above through the right nostril. The patient's nasopharynx, hypopharynx, and oropharynx were well seen. There was no evidence of recent bleeding. There were no blood clots or bright red areas of bleeding. The larynx is still completely obstructed with postradiation changes present. He tolerated both these procedures well without complications. ASSESSMENT: Tracheostomy tube obstruction. This seems the most likely diagnosis given the Consultation Report [facility] [address] [facility] [address] [place]. [address] NAME: CINDY QUEVEDO : 42 STATUS : ADM Yris PAT#: [id number] AGE: 76 ADM/REG DATE : 10/15/16 MR#: [id number] REPORT SERV DATE: 10/16/16 DICTATED BY: PETRA GUADALUPE DATE: 10/16/16 REPORT STATUS : Draft TRANSCRIBED BY: MODL DATE: 10/16/16 history and exam today. It seems like the patient may have had a minor GI bleed from flushing of the G-tube. He currently is not having any bleeding from that area. I do not see any evidence of an upper air digestive bleed at this time, so no acute interventions are being planned. Will notify Dr. Adair that the patient is in the hospital. I assume once he has been cleared by all his other consulting physicians that he can be discharged home soon for continued care of his trach. PS/ARACELISL Petra Guadalupe MD / [id number] CC: Petra Guadalupe MD
--- NOTE | ~2016-10-15 | CN ---
Consultation Report [facility] [address] [place]. [address] NAME: CINDY QUEVEDO : 42 STATUS : ADM Yris PAT#: [id number] AGE: 76 ADM/REG DATE : 10/15/16 MR#: [id number] REPORT SERV DATE: 10/16/16 DICTATED BY: RICARDO PRINCE DATE: 10/16/16 REPORT STATUS : Draft TRANSCRIBED BY: MODL DATE: 10/16/16 CARDIOLOGY CONSULT DATE OF CONSULTATION: REFERRING: Dr. Luis Hanna. REFERRING REASON: Syncopal spell in the setting of respiratory arrest due to obstruction of tracheostomy. HISTORY OF PRESENT ILLNESS: This is a 76-year-old white gentleman with complex past medical history with stage IV extensive laryngeal cancer which has been palliatively treated with radiation. He has chronic tracheostomy and PEG tube placement. He requires frequent transfusion due to the hereditary telangiectasia in the setting of Vtron-Rowbo-Ciuqa syndrome. He has also history of cirrhosis. I had the opportunity to review medical records and discussed the situation with the patient's who is very supportive and very knowledgeable about his lifelong struggle. He has incurable extensive laryngeal cancer. He underwent some evaluation with the scope by Dr. Adair who is his ENT specialist on 10/06/2016, for this squamous cell cancer. There was some evidence of cancer on the vocal cord. The patient has been having difficulties communicating and has some intermittent bleeding from that area. He required transfusion on Tuesday. He denied any chest pain or palpitations. Of note, the patient has chronic rate controlled atrial fibrillation for many years. He has been evaluated by Dr. Trinidad in consult in June 2016. At that time, his echocardiogram was unremarkable except biatrial enlargement, but ejection fraction was 60%. Rate control approach has been continued. According to his , he does not feel any sensation. Yesterday he had more wheezing and difficulties breathing. He has been coughing multiple spells and at the peak of the coughing spell, he lost consciousness. The EMS actually removed a clot from the tracheostomy. Another clot evacuation was reportedly, according to the , performed in the emergency room. The patient was just scoped by the ENT specialist. He remains hemodynamically stable and denies any palpitations or chest pain. He is vague but communication is difficult due to the vocal cord problem. Most communication was done with the . Electrocardiogram revealed chronic atrial fibrillation with heart rate 113 beats per minute. No acute ST-T changes. His troponin is negative 0.03. Hemoglobin is 8.6. Electrolytes are within normal limits. The rest of the review of systems is negative. PAST MEDICAL HISTORY: 1. 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 2. Chronic tracheostomy with recent obstruction. 3. Recurrent bleeding from the tracheostomy. Consultation Report [id number] [place]. [address] NAME: CINDY QUEVEDO : 42 STATUS : ADM Yris PAT#: [id number] AGE: 76 ADM/REG DATE : 10/15/16 MR#: [id number] REPORT SERV DATE: 10/16/16 DICTATED BY: RICARDO PRINCE DATE: 10/16/16 REPORT STATUS : Draft TRANSCRIBED BY: NETTIE DATE: 10/16/16 4. Gastric tube placement in October 2016. 5. Hereditary telangiectasia. 6. Vhrpe-Bubzf-Tsawg syndrome. 7. Recurrent GI bleeding. 8. Recent melena. 9. Need for repeat transfusions. 10.Cirrhosis with remote history of hepatic encephalopathy. 11.Remote history of seizure disorder. 12.Chronic rate controlled atrial fibrillation, asymptomatic. No anticoagulation due to recurrent bleeding. 13.Obstructive sleep apnea. 14.Preserved systolic function with EF 60% in June 2016 with biatrial enlargement. 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 He is retired. He denies smoking, drinking alcohol, or using street drugs. FAMILY HISTORY: Negative for sudden cardiac deaths or premature coronary artery disease in family. ALLERGIES: PENICILLIN. HOME MEDICATIONS: Albuterol, oxygen support via tracheostomy; Bumex via the PEG tube two in the morning and one in the afternoon, but the last week he has been taking only in the morning; lactulose; Keppra 500 mg twice a day; Lopressor 12.5 mg every 8 hours; potassium supplement; Xifaxan 550 mg twice a day; and tamoxifen 20 mg once a day. PHYSICAL EXAMINATION: GENERAL: Chronically ill-looking gentleman with tracheostomy and oxygen support through tracheostomy. He has obvious changes in the setting of Dnnor-Tekwv-Fwhhj syndrome on his skin. HEENT: Pupils reactive to light and accommodation. Moist mucous membranes. NECK: No JVD. Normal carotid upstroke. No carotid bruits. LUNGS: Decreased breath sounds bibasilar, but no crackles with occasional wheezing. CORONARY: Normal S1, S2. No S3 or S4. No significant rub or murmurs. ABDOMEN: Distended. Nontender with PEG tube in place. EXTREMITIES: Lower extremity decreased pedal pulses bilaterally but no edema. SKIN: Warm with normal turgor. MUSCULOSKELETAL: No kyphosis. NEURO/PSY: Alert and oriented. Nonfocal. DATA: CBC remarkable for hemoglobin 8.6. INR 1.3. Troponin 0.03. Electrolytes within normal limits. Electrocardiogram, atrial fibrillation 114 beats per minute. No acute ST-T changes. Currently on monitor, he has a heart rate of 100. ASSESSMENT AND PLAN: Consultation Report [address] [place]. [address] NAME: CINDY QUEVEDO : 42 STATUS : ADM Yris PAT#: [id number] AGE: 76 ADM/REG DATE : 10/15/16 MR#: [id number] REPORT SERV DATE: 10/16/16 DICTATED BY: RICARDO PRINCE DATE: 10/16/16 REPORT STATUS : Draft TRANSCRIBED BY: NETTIE DATE: 10/16/16 1. Syncopal spell in the setting of obstruction of tracheostomy without clear evidence of cardiac arrest. 2. Chronic respiratory failure. Tracheostomy support. 3. Recurrent bleeding from the tracheostomy and recently identified cancer on the vocal cord. 4. Stage IV laryngeal cancer involving the esophagus. 5. Status post recent PEG tube placement. 6. Status post recent palliative radiation for the laryngeal cancer. 7. Chronic rate controlled atrial fibrillation. I have reviewed the available medical records and discussed situation with the patient and then the ENT specialist aegis console operator track. Based on the above, there is no clear evidence of cardiac arrest but rather respiratory arrest in the setting of obstruction of his tracheostomy with blood clot. His airways now are patent. He underwent urgent scope by the ENT specialist. He remains hemodynamically stable with chronic rate controlled asymptomatic atrial fibrillation. There is no need to do another echocardiogram while he had one in June. We will continue rate control approach. He required a transfusion just a few days ago and likely he may require another one in case he will continue to bleed. Of note, he has some melena per his . Prognosis is very guarded. We will be available as needed. Thank you for the consult. MARIANELA/NETTIE Ricardo Prince M.D. / [id number] CC: Evaristo Christensen MD
--- NOTE | ~2016-10-15 | DS ---
Discharge Summary [facility] [address] [facility] [place]. [address] NAME: CINDY QUEVEDO : 42 STATUS : DIS Yris PAT#: [id number] AGE: 76 ADM/REG DATE : 10/15/16 MR#: [id number] REPORT SERV DATE: 10/19/16 DICTATED BY: MOE SMITH DATE: 10/17/16 REPORT STATUS : Draft TRANSCRIBED BY: MODL DATE: 10/17/16 ADMISSION DATE: 10/15/2016 DISCHARGE DATE: 10/17/2016 DISCHARGE DIAGNOSES: 1. Acute respiratory arrest due to airway obstruction, now resolved. 2. Fxiyl-Ydmwe-Kfnrm syndrome, currently stable. 3. Acute blood loss anemia on chronic anemia, currently stable, and no need of transfusion. 4. Atrial fibrillation. 5. Laryngeal cancer. 6. Seizure disorder. 7. Cirrhosis of the liver. 8. Chronic tracheostomy. CONSULTANTS DURING THIS HOSPITALIZATION: Dr. Nieto of ENT. Dr. Sands of Cardiology. INVASIVE PROCEDURES DONE DURING THIS HOSPITALIZATION: None. BRIEF HISTORY OF PRESENT ILLNESS: The patient is a 76-year-old male with laryngeal cancer, presented with acute airway obstruction due to blood clots and bleeding, so he was admitted. For detailed history and physical exam, please see note dictated by Dr. Luis Hanna on 10/15/2016. HOSPITAL COURSE: After being admitted to the hospital, this patient actually was appropriately resuscitated in the emergency room with extraction of blood clots in the ambulance as well as in the emergency room. Post admission, this patient's respiratory status returned back to baseline. There was some question about cardiac arrest. Dr. Sands saw the patient in consultation, and after evaluation, did not think that he had cardiac arrest or any acute cardiac issues, so he signed off his care and no further recommendations were made. Dr. Nieto saw the patient in consultation, evaluated the patient and recommended that he follow up with Dr. Matthew Adair in the outpatient setting. This patient's tube feeds were restarted. He continued to improve. We did monitor his H and H and he had received blood transfusion just last Tuesday. His hemoglobin has remained at about 8.8, and there is no evidence of any further bleeding, so we are discharging him in the home setting for recuperation. DISCHARGE DISPOSITION: Home. DISCHARGE ACTIVITY: As tolerated. DISCHARGE DIET: Continue tube feedings. DISCHARGE MEDICATIONS: Amicar 1000 mg per PEG daily, Bumex 2 mg per PEG once daily and 1 mg in the afternoon, lactulose 30 mL p.o. twice daily, Keppra 500 mg per PEG twice daily, Lopressor 12.5 mg every eight hours, Xifaxan 550 mg twice daily, tamoxifen 20 mg once daily, Discharge Summary [address] [address] NAME: CINDY QUEVEDO : 42 STATUS : DIS Yris PAT#: [id number] AGE: 76 ADM/REG DATE : 10/15/16 MR#: [id number] REPORT SERV DATE: 10/19/16 DICTATED BY: MOE SMITH DATE: 10/17/16 REPORT STATUS : Draft TRANSCRIBED BY: NETTIE DATE: 10/17/16 DuoNebs one neb inhalation every four hours p.r.n., potassium 20 mEq once daily, Prilosec compounded per PEG daily. DISCHARGE FOLLOWUP: With Dr. Matthew Adair as previously scheduled. With PCP as previously scheduled. About 30 minutes spent planning this patient's discharge, reconciling medications, and discussing hospital care, and followup with the patient and the family at the bedside. ZEYAD/NETTIE Moe Smith M.D. / [id number] CC: Drake Moreland M.D.
[2016-10-15 21:56] LABS: ALLENS TEST Pos; BE (BASE EXCESS) 3.4 MEQ/L (0 +/- 2.5); CARBOXYHEMOGLOBIN 1.6 % (0-3); DEVICE TM; HCO3 (ACTUAL BICARBONATE) 27.9 MEQ/L (23-27); HEMOBLOGIN CONTENT 9.9 G/DL (14-18); INSTRUMENT SERIAL # 8087; METHEMOGLOBIN 0.4 % (0-3); OPERATOR ID 17537; PCO2 (CO2 TENSION) 42 MMHG (35-45); PO2 (O2 TENSION) 187 MMHG (79-93); SAMPLE Arterial; pH 7.44 (7.37-7.43)
[~2016-10-15 21:59] MED LIST changes: +PRILO PEG
[2016-10-15 22:04] LABS: BASOPHILS 0.1 %; BASOPHILS ABSOLUTE 0.01 10/3/uL (0.0-0.16); EOSINOPHILS 1.3 %; EOSINOPHILS ABSOLUTE 0.11 10/3/uL (0.0-0.53); ER CBC TAT 0 Hrs 05 Mins; HEMOGLOBIN 9.4 g/dL (13.6-17.8); IMMATURE GRANULOCYTES 0.2 %; IMMATURE GRANULOCYTES ABSOLUTE 0.02 10/3/uL (0.0-0.11); LYMPHOCYTES 5.5 %; LYMPHOCYTES ABSOLUTE 0.45 10/3/uL (0.67-4.30); MEAN CORPUS HGB CONC 29.5 g/dL (32.0-36.0); MEAN CORPUSCULAR HEMOGLOB 26.3 pg (26.0-34.0); MEAN CORPUSCULAR VOLUME 89.4 fL (80-100); MEAN PLATELET VOLUME 10.2 fL (9.2-13.0); MONOCYTES 6.9 %; MONOCYTES ABSOLUTE 0.56 10/3/uL (0.21-1.20); NEUTROPHILS ABSOLUTE 7.02 10/3/uL (2.02-8.40); PLATELET COUNT 211 10/3/uL (150-400); RBC DISTRIBUTION WIDTH 18.8 % (12.0-16.0); RED CELL COUNT 3.57 10/6/uL (4.7-6.1); WHITE BLOOD CELLS 8.2 10/3/uL (4.5-10.5)
[2016-10-15 22:05] LABS: HEMATOCRIT 31.9 % (40.0-51.0); MANUAL DIFF NO %
[2016-10-15 22:12] LABS: INTERNATIONAL NORMAL RATI 1.3 UNITS (-); PARTIAL THROMBO TIME 29.9 SEC (22.5-37.2); PROTIME (NOT ORD) 15.6 SEC (12.0-14.5)
[2016-10-15 22:28] LABS: ALBUMIN 3.1 G/DL (3.5-5.0); ALKALINE PHOSPHATASE 125 U/L (45-117); BUN (BLOOD UREA NITROGEN) 29 MG/DL (6-23); CHEST PAIN PROFILE TAT 0 Hrs 28 Mins; CHLORIDE, SERUM 103 MMOL/L (96-112); CO2 (CARBON DIOXIDE) 36 MMOL/L (24-34); CREATININE 1.03 MG/DL (0.70-1.30); DIRECT BILIRUBIN 0.4 MG/DL (0.0-0.4); GFR AFRICAN AMERICAN 82 ML/MIN (>=60); GFR NON AFRICAN AMERICAN 71 ML/MIN (>=60); POTASSIUM, SERUM 4.2 MMOL/L (3.5-5.3); SODIUM, SERUM 143 MMOL/L (135-148); TOTAL PROTEIN 7.8 G/DL (6.0-8.5); TROPONIN I 0.03 NG/ML (<0.05)
[2016-10-15 22:29] LABS: CALCIUM, SERUM 9.2 MG/DL (8.5-10.4); GLUCOSE, SERUM 84 MG/DL (60-99); INDIRECT BILIRUBIN(NOT ORDER) 1.3 MG/DL (0.1-0.9); SGPT(ALT) 26 U/L (5-65); TOTAL BILIRUBIN 1.7 MG/DL (0-1.2)
[2016-10-15 22:30] LABS: SGOT(AST) 38 U/L (5-40)
[2016-10-15 22:49] LABS: LACTATE 1.4 MMOL/L (0.3-2.4)
[2016-10-16] MEDS ORDERED: DUONEB INH (00:02)
[2016-10-16] MEDS ORDERED: CONSTULOSE PEG (00:02)
[2016-10-16] MEDS ORDERED: BUM2 PEG (00:03)
[2016-10-16] MEDS ORDERED: KEPPRA500 PEG (00:03)
[2016-10-16] MEDS ORDERED: AMICAR1000 MG PEG (00:03)
[2016-10-16] MEDS ORDERED: BUM1 PEG (00:03)
[2016-10-16] MEDS ORDERED: KCL20UDL PEG (00:04)
[2016-10-16] MEDS ORDERED: LOP25 PEG (00:04)
[2016-10-16] MEDS ORDERED: XIFAXAN550 MG PEG (00:05)
[2016-10-16] MEDS ORDERED: TAMOXIFEN20 M1 PEG (00:06)
[2016-10-16] MEDS ORDERED: [UNRECOGNIZED DRUG - OTHER] PEG (00:06)
[2016-10-16 06:16] LABS: BASOPHILS 0.2 %; BASOPHILS ABSOLUTE 0.01 10/3/uL (0.0-0.16); EOSINOPHILS 1.3 %; EOSINOPHILS ABSOLUTE 0.07 10/3/uL (0.0-0.53); HEMATOCRIT 29.3 % (40.0-51.0); HEMOGLOBIN 8.6 g/dL (13.6-17.8); IMMATURE GRANULOCYTES 0.2 %; IMMATURE GRANULOCYTES ABSOLUTE 0.01 10/3/uL (0.0-0.11); LYMPHOCYTES 7.3 %; MEAN CORPUS HGB CONC 29.4 g/dL (32.0-36.0); MEAN CORPUSCULAR HEMOGLOB 26.4 pg (26.0-34.0); MEAN CORPUSCULAR VOLUME 89.9 fL (80-100); MEAN PLATELET VOLUME 9.1 fL (9.2-13.0); MONOCYTES 9.5 %; MONOCYTES ABSOLUTE 0.52 10/3/uL (0.21-1.20); NEUTROPHILS 81.5 %; NEUTROPHILS ABSOLUTE 4.45 10/3/uL (2.02-8.40); PLATELET COUNT 185 10/3/uL (150-400); RBC DISTRIBUTION WIDTH 18.6 % (12.0-16.0); RED CELL COUNT 3.26 10/6/uL (4.7-6.1); WHITE BLOOD CELLS 5.5 10/3/uL (4.5-10.5)
[2016-10-16 06:22] LABS: MANUAL DIFF NO %
[2016-10-16 06:24] LABS: INTERNATIONAL NORMAL RATI 1.3 UNITS (-); PROTIME (NOT ORD) 16.4 SEC (12.0-14.5)
[2016-10-16 06:43] LABS: A/G RATIO 0.7 (0.7-1.9); ALBUMIN 2.7 G/DL (3.5-5.0); BUN (BLOOD UREA NITROGEN) 28 MG/DL (6-23); CALCIUM, SERUM 9.2 MG/DL (8.5-10.4); CHLORIDE, SERUM 106 MMOL/L (96-112); CO2 (CARBON DIOXIDE) 32 MMOL/L (24-34); CREATININE 0.85 MG/DL (0.70-1.30); GFR AFRICAN AMERICAN 99 ML/MIN (>=60); GFR NON AFRICAN AMERICAN 85 ML/MIN (>=60); GLOBULIN 3.9 G/DL (2.5-4.1); POTASSIUM, SERUM 3.9 MMOL/L (3.5-5.3); SODIUM, SERUM 143 MMOL/L (135-148); TOTAL PROTEIN 6.6 G/DL (6.0-8.5)
[2016-10-16 06:46] LABS: ALKALINE PHOSPHATASE 102 U/L (45-117); GLUCOSE, SERUM 143 MG/DL (60-99); SGOT(AST) 18 U/L (5-40); TOTAL BILIRUBIN 1.2 MG/DL (0-1.2)
[2016-10-16 06:47] LABS: SGPT(ALT) 23 U/L (5-65)
[2016-10-16 17:04] LABS: HEMATOCRIT 31.6 % (40.0-51.0); HEMOGLOBIN 9.2 g/dL (13.6-17.8)
[2016-10-17 06:14] LABS: BASOPHILS 0 %; EOSINOPHILS 0 %; HEMATOCRIT 30.5 % (40.0-51.0); HEMOGLOBIN 8.8 g/dL (13.6-17.8); IMMATURE GRANULOCYTES 0.2 %; IMMATURE GRANULOCYTES ABSOLUTE 0.01 10/3/uL (0.0-0.11); LYMPHOCYTES 2.2 %; LYMPHOCYTES ABSOLUTE 0.12 10/3/uL (0.67-4.30); MEAN CORPUS HGB CONC 28.9 g/dL (32.0-36.0); MEAN CORPUSCULAR VOLUME 90.2 fL (80-100); MEAN PLATELET VOLUME 9.6 fL (9.2-13.0); MONOCYTES 1.8 %; NEUTROPHILS 95.8 %; NEUTROPHILS ABSOLUTE 5.21 10/3/uL (2.02-8.40); PLATELET COUNT 208 10/3/uL (150-400); RBC DISTRIBUTION WIDTH 18.4 % (12.0-16.0); RED CELL COUNT 3.38 10/6/uL (4.7-6.1); WHITE BLOOD CELLS 5.4 10/3/uL (4.5-10.5)
[2016-10-17 06:15] LABS: MANUAL DIFF NO %
[2016-10-17 06:29] LABS: ALBUMIN 2.8 G/DL (3.5-5.0); BUN (BLOOD UREA NITROGEN) 32 MG/DL (6-23); CALCIUM, SERUM 9.1 MG/DL (8.5-10.4); CHLORIDE, SERUM 106 MMOL/L (96-112); CO2 (CARBON DIOXIDE) 36 MMOL/L (24-34); CREATININE 1.02 MG/DL (0.70-1.30); GFR AFRICAN AMERICAN 83 ML/MIN (>=60); GFR NON AFRICAN AMERICAN 72 ML/MIN (>=60); PHOSPHORUS, SERUM 2.5 MG/DL (2.5-4.5); POTASSIUM, SERUM 3.9 MMOL/L (3.5-5.3); SODIUM, SERUM 144 MMOL/L (135-148)
[2016-10-17 06:30] LABS: GLUCOSE, SERUM 195 MG/DL (60-99)
[2016-12-10] MEDS ORDERED: PROTONIX PEG (15:45)
[2016-12-10] MEDS ORDERED: LOP25 PEG (15:45)
[2016-12-10] MEDS ORDERED: KEPPRA500 PEG (15:45)
[2016-12-10] MEDS ORDERED: AMICAR1000 MG PEG (15:46)
[2016-12-10] MEDS ORDERED: SUCR PEG (15:46)
[2016-12-10] MEDS ORDERED: XIFAXAN550 MG PEG (15:46)
[2016-12-10] MEDS ORDERED: VITAMIN D31000 UNIT PEG (15:47)
[2016-12-10] MEDS ORDERED: KCL20UDL PEG (15:47)
[2016-12-10] MEDS ORDERED: KRISTALOSE20 GM PEG (15:48)
[2016-12-10] MEDS ORDERED: TAMOXIFEN20 M1 PEG (15:48)
[2016-12-10] MEDS ORDERED: DUONEB INH (15:48)
== END 2016-10-17 14:22 | disposition home or self-care (01) ==
LOC: ER 21:59 → 7NO 23:42
PROVIDERS: Emergency Medicine; Hospitalist; Internal Medicine
DX: D62 Acute posthemorrhagic anemia (principal); I48.91 Unspecified atrial fibrillation; G40.909 Epilepsy, unspecified, not intractable, without status epilepticus; K74.60 Unspecified cirrhosis of liver; K21.9 Gastro-esophageal reflux disease without esophagitis; G47.33 Obstructive sleep apnea (adult) (pediatric); I10 Essential (primary) hypertension; N39.0 Urinary tract infection, site not specified; Z98.890 Other specified postprocedural states; Z88.0 Allergy status to penicillin; Z79.899 Other long term (current) drug therapy
CPT/HCPCS: 31720; 36600; 71010; 80048; 80053; 80069; 80076; 82805; 83605; 83735; 84443; 84484; 85014; 85018; 85025; 85610; 85730; 93005; 94640; 96374; 99285; A9270-GY; G0378; J2930